=== PATIENT | female | born 1950 | race Caucasian/White ===

== ENCOUNTER 2019-03-03 05:50 | Inpatient (IN) | payer MEDICARE, SELFPAY ==
[2019-02-23 13:00] VITALS: BMI 31.6
[2019-03-03] VITALS (17 sets, daily range): BP systolic 101–159; BP diastolic 52–100; PULSE 66–106; RESP 10–20; TEMP 35.5–36.9; O2SAT 90–100; BMI 31.6
--- NOTE | 2019-03-03 | DI.RAD.S_ITS ---
PROCEDURE: XR LUMBAR SPINE 2-3V INDICATIONS: L5-S1 TLIF TECHNIQUE: 2 views of the lumbar spine were acquired. COMPARISON: None. FINDINGS: Bones: Postsurgical changes compatible with L5-S1 TLIF. Orthopedic hardware is intact. There is normal bony alignment. No vertebral body compression fractures. No suspicious bony lesions. Soft tissues: Overlying bowel gas pattern is normal. No suspicious soft tissue calcifications. IMPRESSION: Expected postsurgical change for L5-S1 TLIF or Dictated by: Dina Moreau MD, PhD on 03/03/2019 at 11:07 Approved by: Dina Moreau MD, PhD on 03/03/2019 at 11:08
[2019-03-03] MEDS: LACTATED RINGERS 1,000 ML 42 ML IV ×2 (07:00→08:30)
--- NOTE | 2019-03-03 07:12 | PM.PREOP ---
Pre-operative Note Interval Note History & Physical reviewed/Exam performed by Physician: Yes Changes to H&P: No
--- NOTE | 2019-03-03 07:13 | P.OP_ITS ---
Operative Date/Time/Diagnoses Date of procedure: 03/03/19 Time of procedure: 10:21 Pre-op diagnosis: Lumbar stenosis with radiculopathy History of lumbar laminectomy Post-op diagnosis: same Procedure & Clinicians Procedure: Revision laminectomy on the right at L5-S1 L5-S1 TLIF (posterior/posterior interbody fusion) with cage L5-S1 screws Iliac crest bone graft aspirate Use of microscope Same procedure as scheduled: Yes Indications: [age] year old female with intractable pain from stenosis. They had failed conservative management and requested operative intervention. Risks and benefits of surgery were discussed and appropriate consents were obtained. Surgeon: Dong Mcgregor Company Pilot: Daren Parham Anesthesia Type: General Operative Notes Findings: None Closure Type: primary Specimen(s): none sent Prosthetic devices, grafts, tissues, transplants, or devices: NuVasive MAS Reline screws Globus Rise cage Estimated Blood Loss (mL): 20 Procedure in detail: The patient was brought to the operating room and intubated on the table. A time-out was performed. They were then rolled over to the well- padded Champ table in the prone position. Preoperative antibiotics were given. The back was prepped and draped in the standard sterile fashion. Using fluoroscopy, a 4 cm longitudinal incision was made to the well-marked right of the midline. We used Bovie to come down to and split the lumbodorsal fascia. Using fluoroscopy and monitoring, we then percutaneously placed Jamshidi needles down the pedicles of L5 and S1 on the right side. These were changed out to guidewires and then we tapped and then placed the NuVasive MAS Reline screw shanks. We then opened up the retractors and used Bovie to clear up the posterolateral gutter as well as medially along the lamina to the spinous processes. We had to carefully dissect the soft tissue medially once we had the junction of the facet and the previous laminectomy. Great care was taken to stay free of the dura. A bur was used to decorticate the transverse processes. We brought in the microscope. Using a combination of bur and Kerrison rongeurs, a revision laminotomy was performed from the right side. We used a curette to dissect the soft tissue and dura away from the remaining facet. Once this was free we performed a facetectomy at this level to open up the neural foramen. We gradually worked our way along the dura down to the level of the disc. We traced the exiting L5 nerve root out. This completed the revision laminotomy at L5-S1. This was separate and distinct from the TLIF approach as this was a revision procedure with large amount of scar tissue from her previous surgery, requiring extensive dissection, time, and meticulous care around the scar and nerves. We then began the TLIF prep. We carefully cleaned up the remainder of the foramen until we could easily retract the exiting root as well as clearing medially below the dura and expose the disc space. We gradually began freeing the scarred dura off of the disc and sweeping it medially. The disc was prepped with bipolar and then an annulotomy was performed. We performed a diskectomy using a combination of paddles, ulices, pituitaries, and curettes. We d istracted the disc using a paddle and locked the retractor in an open position. We then filled the disc space with Osteocel bone graft. We then placed the globus Rise cage under fluoroscopy and then filled this in with more bone graft. The distraction on the retractor was released to compress down. This completed the posterior interbody fusion portion of the TLIF at L5-S1. We then placed the screw heads, elzbieta, and locked down the set screws. The wound was copiously irrigated. A small stab incision was made over the PSIS. We used a Jamshidi needle to aspirate several mL of bone marrow from the pelvis. This was mixed with the remaining Osteocel and combined with all of the locally harvested bone graft and placed in the posterolateral gutter for the posterior fusion of the TLIF at L5-S1. We then closed the fascia. We then went to the opposite side. Again using fluoroscopy, a 3 cm incision was made and Bovie was used to come down to split the fascia. Using neural monitoring and fluoroscopy, Jamshidi needles were advanced down the pedicles of L5 and S1 on the left side. These were switched over guidewires, tapped, and screws placed. We then placed a elzbieta and locked the set screws on this side. The wound was irrigated. The fascia was closed. Vancomycin powder was placed in the wounds. The superficial and skin were closed. A sterile dressing was placed. The patient was then rolled over extubated and brought to recovery room without complications. Complications: none Post-operative Condition: stable Disposition: PACU Plan for aftercare: Inpatient. Up with therapy.
[2019-03-03] MEDS: CEFAZOLIN 2 GM/100 ML FROZ.PIGGY IV ×2 (07:42→17:22)
--- NOTE | 2019-03-03 08:21 | SUR.OPER ---
Prone on spine table, head in foam head support, padded chest and pelvic supports, gel pad at knees, lower legs supported by pillows; nipples, genitalia and toes free of pressure, arms secured on foam padded arm boards at <90 degrees abduction. Tape over blanket at thigh secured to table.
[2019-03-03] MEDS: THROMBIN (RECOMBINANT) 5,000 UNIT VIAL 5000 UNIT TOP (08:31)
[2019-03-03] MEDS: VANCOMYCIN 1,000 MG VIAL 1000 MG TOP (08:31)
[2019-03-03] MEDS: SODIUM CHLORIDE 0.9% 1,000 ML, GENTAMICIN 80 MG IRR ×2 (08:33→08:34)
[2019-03-03] MEDS: BUPIVACAINE 0.5% (PF) 20 ML, BUPIVACAINE LIPOSOME 266 MG INJ (09:46)
[2019-03-03] MEDS: HYDROMORPHONE 2 MG INJ IV ×2 (10:52→10:59)
[2019-03-03] MEDS: fentaNYL 100 MCG/2 ML INJ IV ×2 (10:52→10:59)
[2019-03-03] MEDS: HYDROMORPHONE 1 MG INJ 0.5 MG IV ×2 (12:28→14:23)
[2019-03-03] MEDS: LACTATED RINGERS 1,000 ML 125 ML IV (12:29)
--- NOTE | 2019-03-03 13:01 | CM.DANOTE ---
Discharge Planning/Care Management DCP: assessment: case received this morning and discussed in Team Rounds. It was noted that pt was still in surgery. EMR reviewed. Pt is a 68 year old male who admitted this morning 0550 for a planned spinal surgery: revision: lumbar region. Surgeon: Dr. Mcgregor PCP: Kailey Najera Pt also sees a tinning equipment tender and a creative consultant. Payer: [employer] Medicare Admission status: INPT: confirmed by UR RN Carmelo. OT and PT will be seeing pt after surgery. It is noted that pt spoke with pre-op RN ANTON on 02/23 and identified her post d/c plan as home with family support. P: Pt has not yet come to the post surgical floor. Will follow up tomorrow to meet with pt and continue the assessment for d/c needs process CM Discharge Assessment Start: 03/03/19 13:00 Freq: Status: Active Protocol: Document 03/03/19 13:00 ITV (Rec: 03/03/19 13:01 ITV [id number]) Discharge Planning Assessment Advance Directives? No Advance Directives on File No History Provided By Medical Record Has Patient been admitted in last 30 No days? Prior Living Arrangements House Household Members spouse,children Review Status In Process Pre-Anesthesia Assessment Start: 02/23/19 13:00 Freq: Status: Complete Protocol: Document 02/23/19 13:00 CAB (Rec: 02/23/19 13:54 CAB [id number]) Pre-Anesthesia Assessment PAC Comment Surgeon H&P not available at time of PAC assess Preferred Name Candace Patient Information Reviewed Via Phone Assessment Assessment Completed With Patient Diagnostic Results BMP/CMP,CBC,EKG Comment Outside labs/EKG scanned to record Primary Care Provider Kailey Najera Medical Clearance Received Yes Seen Specialist in Last 12 Months Yes Specialist Seen Orthopedist,Other Comment RA-Dr. Julian. PCP pre-op clearance 02/13/19 scanned to record Primary Language Central African Height 146.69 cm Weight 68.039 kg Body Mass Index (BMI) 31.6 Hearing Ability Normal Visual Assist Glasses Dentition Type Teeth, Natural Present,Teeth, Broken Barriers to Learning None Other Aids No Hx Anesthesia Reactions Yes: PONV Hx Family Anesthesia Reaction No Hx Malignant Hyperthermia No Hx Blood Transfusions No Anesthesia Review Requested No alcohol intake former Smoking Status Never smoker Substance Use Type does not use Pain Present Pain Reported Musculoskeletal Symptoms Abnormal Gait,Back Pain, Difficulty Walking,Limited Range of Motion,Loss of Height ,Numbness,Radiating Pain into Limb History of Falling (Recent or History of Yes ) Patient is completely paralyzed or No completely immobile Mental Status Oriented to own ability Is patient on oxygen? No Does patient have CLAYTON/SOB No Hx Sleep Apnea No Currently Taking a Beta Dylon No Can You Climb a Flight of Stairs Without Yes SOB Hx Chest Pain Yes: Not since 2018 Hx SOB No Hx Syncope or Dizziness No Anti-Coagulant Therapy No Has a Arc Furnace Operator Yes: Dr. Cochran-last saw Cardiac Testing Yes: Echo @ [facility] EF 60% Hx Pacemaker/ICD No Pacemaker Rep Required? No Cardiac Clearance Received Not Applicable Comment Cardiac records scanned to record Diet Type At Home Ketogenic dysphagia No: Sensation of solid food getting stuck, intermittent Bladder Pattern Incontinent,Incontinent, Stress Urinary Catheter Present No Hx Urinary Self Catheterization No Diabetes No Patient No Lactating No Hx Drug Resistant Organism No Presence of External or Internal Medical No Devices Have you traveled outside the [facility] in the last 30 days? Marital Status Lives With spouse,children Prior Living Arrangements House Number of Floors (Floors) One Floor Support System Child/Children,Spouse Does the Patient Have Assistance After Yes Surgery Patient Discharge Plan Description Return Home Comment Pt advised 2-3 day length of stay per surgeon Feels Safe in Current Environment Yes Been Physically Hurt or Threatened By a No Person in Current Environment Do you have thoughts of harming yourself None or others? Are you currently considering suicide? No Do you have a plan to hurt yourself or No Plan others? Do You Have Any Spiritual Beliefs That Yes: Wears yazdanism garments May Affect Your HC Choices? daily Do You Have Any Cultural Practices That No May Affect Your HC Choices? Comment Linda Who Can We Speak to About Patient's Care Family, friends Identifying Code for Release of Patient Declines to issue Information Health Care Proxy/Next of Kin Juvencio () Health Care Proxy Emergency Contact Name Juvencio () Esther ( daughter) Emergency Contact Phone Number Juvencio: [phone] Esther : [phone] Advance Directives? No Power of Laundry Bag Punch Operator No PAC Instructions Durable medical equipment, Medications to take/avoid, Nasal antibiotic,No ETOH/ petroleum product on skin DOS, NPO,Post-op transportation,Pre -surgical wash,Sturdy shoes/ comfortable clothes,Do not bring valuables and remove jewelry
--- NOTE | 2019-03-03 13:21 | PC.NURSE ---
Day Shift- Report rec'd from LEENA Hutchinson in PACU at 1116. Pt arrived at 1140 to room 217 via bed. Pt's Devon at beside. Dennis RN Coordinator tucked in pt. VSS, afebrile. At 1210, pt alert, c/o 8-9/10 aching to lower back. Pain management plan discussed. PRN Dilaudid 0.5mg IV prn given at 1225 with good effect. Lower back dressing CDI, ice pack in place, CMS+, pt denies numbness or tingling, able to move BLE. Helps shift hips getting into a comfortable position. Using MING bed tilt to reposition also from side to side. Oriented to call light, post op vitals, dinner, starting slowly on fluids and foods. Pt denies nausea. Call light within reach, bed alarm on, pt reports falling down garage stairs within the last 3 months. Devon took pt's wallet home.
[2019-03-03] MEDS: GABAPENTIN 300 MG CAPSULE PO ×2 (14:31→21:07)
--- NOTE | 2019-03-03 16:40 | PT.IIE ---
This is to certify that I have reviewed this documentation and is involved with this pt's care. Current Diagnoses Spinal stenosis, lumbar region with neurogenic claudication (03/03/19) Other intervertebral disc degeneration, lumbar region (03/03/19) Other specified postprocedural states (03/03/19) Surgery Performed Operation Date: 03/03/19 07:45 Actual Procedures p L5S1 revision laminectomy and instrumented fusion w/ bone graft(Not Applicable) - Dong Mcgregor MD Surgical History (Last Updated 02/23/19 @ 13:32 by Maria Antonia Hernandez RN) History of bilateral tubal ligation (Acute) Hx of laminectomy (Acute ~06/1996) Hx of left breast biopsy (Acute ~1982) Medical History (Last Updated 02/24/19 @ 08:20 by Maria Antonia Hernandez RN) Arthritis (Acute) CAD (coronary artery disease) (Acute) Chest pain (Acute ~2017) Chronic back pain (Acute) Concussion (Acute ~2011) Easy bruisability (Acute) Edema (Acute) Elevated glucose (Acute) Fibromyalgia (Acute) GERD (gastroesophageal reflux disease) (Acute) Mastitis (Acute ~1982) Numbness (Acute) Pleurisy (Acute ~07/2017) Psoriasis (Acute) Psoriatic arthritis (Acute) Sciatica (Acute) Thinning of skin (Acute) Physical Therapy Inpatient Evaluation/Re-Eval M1 PT/OT-IP Prior Functional Status Start: 03/03/19 18:10 Freq: NEEDED Status: Active Protocol: Document 03/03/19 16:40 J (Rec: 03/03/19 18:37 J [id number]) Medical Review Prior Functional Status Medical History Reviewed Yes Communication Pt able to make needs known. Mobility and Gait Pt reports I with mobility and gait prior to surgery but limited tolerance d/t pain. Activities of Daily Living and IADL's Pt reports I with ADLs/IADLs prior to surgery. Prior Functional Level (Other details) Pt was able to drive prior to surgery. Social History Household Members spouse,children Living Arrangements House Number of Floors (Floors) One Floor Number of Stairs To Enter/Railing? 3 KIM (no railing) Home Environment High Toilet,Walk in Shower,Tub /Shower Doors Home Equipment Shower Seat with Backrest,Hand Held Shower Employment Status Retired Additional Social History Comment Pt lives in one-story home in [place] [facility] with , adult daughter, and two grandchildren. Pt notes that she is the primary caregiver for her grandchildren when her daughter is at work. She states that her is retired and will be able to help her with mobility upon d/ c home. Pt has 3 KIM house without a railing. M2 PT-IP Current Condition Start: 03/03/19 18:10 Freq: NEEDED Status: Active Protocol: Document 03/03/19 16:40 JG (Rec: 03/03/19 18:37 JG [id number]) Physical Therapy Current Condition Current Condition Evaluation Date 03/03/19 Treatment Diagnosis L5-S1 TLIF, impaired mobility, limited activity tolerance Onset Date 03/03/19 Precautions Lumbar Precautions Log Roll,No Twisting,Limit Bending,Lifting Restriction of 10 lbs,Gait Belt above Incisional Area Weight Bearing Status Weight Bearing Status Full Weight Bearing M3 PT-IP Subjective Start: 03/03/19 18:10 Freq: NEEDED Status: Active Protocol: Document 03/03/19 16:40 JG (Rec: 03/03/19 18:37 JG [id number]) Subjective Physical Therapy Visit Type Type Initial Evaluation Visit Start Time 16:40 Visit Stop Time 17:21 Total Visit Minutes 41 Notes IE led by OLGA Guillen, supervised by PT Desirae Number of POWER PLANT OPERATOR APPRENTICE Visits 0 Physical Therapy Visit Comments Patient Comments pt agreeable to do PT Patient Goals Return home Therapy Pain Assessment Pain When Pain Assessed At Rest Pain Present Pain Present Pain Reported Location Lower Back Intensity 6 Scale Used Numeric (1 - 10) Description Acute,Sharp,With Movement Pain Behaviors Wincing Pain Management Techniques Distraction,Re-positioning M4 PT-IP Mobility and Gait Start: 03/03/19 18:10 Freq: NEEDED Status: Active Protocol: Document 03/03/19 16:40 JG (Rec: 03/03/19 18:37 JG [id number]) PT-Bed Mobility Assessment Rolling Type of Rolling Roll to Right Level of Assist Minimal Assistance,1 Person Assistance Supine to Sit Supine to Sit Minimal Assistance,1 Person Assistance Sit to Supine Sit to Supine Standby Assistance Scooting Scooting to Edge of Bed Contact Guard Assistance PT-Transfer Assessment Sit to and From Stand Sit to and from Stand Minimal Assistance,1 Person Assistance,Use of Upper Extremities Equipment Transfer Assistive Device Gait Belt,Front Wheeled Walker Orthotic/Prosthetic Devices or Brace: No Transfers Transfer Destination Bed Transfer Technique stepped laterally with FWW Transfer Ability Level of Assist Minimal Assistance,1 Person Assistance,Use of Upper Extremities Comments Mobility Comments Pt in bed upon assessment. Resting BP 134/82. Pt able to correctly articulate precautions. Educated pt on log rolling for bed mobility. Pt able to complete log roll and supine to sit with min A and cuing. Pt CGA to scoot to EOB but pt cont to be unable to reach floor so a pillow support was provided under feet. Pt reported increase in dizziness/nausea once sitting up with BP stable at 145/84, sx slightly improved after sitting for several minutes EOB but cont to complain of nausea and requested to lay back down in bed. Pt sitting too close to foot of bed at time so instructed pt to move closer to HOB prior to lying down to improve positioning. Pt agreed to stand up to reposition. Pt able to stand with min A and take several small steps laterally with min A and FWW to reposition in bed. Pt demonstrated limited foot clearance and forward trunk lean during lateral stepping. Min A for stand to sit to control descent. Pt required SBA for sit to supine with cuing for log rolling. Pt able to reposition in bed SB. Elevated HOB so pt could have dinner. Pt cont to report nausea but BP stable at 144/ 90, alerted nurse to nausea. Pt left in bed with HOB elevated, call light and needs within reach. Gait Assessment Gait Deviations General Gait Pattern Antalgic,Decreased Feet Clearance,Flexed Trunk Factors Limiting Gait Function Factors Limiting Gait Function Decreased Activity Tolerance, Decreased Strength,Pain,Poor Balance Comments Gait Comments see mobility comments Stair Climbing Assessment Comments Stair Climbing Comments not assessed PT-Balance Assessment Sitting Balance and Reactions Static Sitting Balance Ability Good Dynamic Sitting Balance Ability Fair Standing Balance and Reactions Static Standing Balance Ability Fair Dynamic Standing Balance Ability Fair Device Used FWW M5 PT-IP Objective Assessments Start: 03/03/19 18:10 Freq: NEEDED Status: Active Protocol: Document 03/03/19 16:40 JG (Rec: 03/03/19 18:37 JG [id number]) Orientation Orientation/Cognition Level of Alertness Alert Orientation Name,Day of Week,Place, Situation Language Function Ability No Deficits Noted Safety Awareness Understands Safety Issues Memory Description No Deficits Noted Comments No noted cognitive or communication deficits. Gross Range of Motion Upper Extremity ROM Assessment Within Functional Limits Lower Extremity ROM Assessment Within Functional Limits Strength Upper Extremity Strength Assessment Within Functional Limits Lower Extremity Strength Assessment Bilaterally Impaired Hip 4-/5 Knee 4-/5 Ankle 4-/5 Sensation Assessment Sensation Gross Sensation Right LE Impaired,Left LE Impaired Light Touch Impaired Comments Sensation Comments Pt notes she has had decreased sensation on the bottom of both feet since previous back surgery. Muscle Tone Muscle Tone WNL Yes M6 PT-IP Treatment Start: 03/03/19 18:10 Freq: NEEDED Status: Active Protocol: Document 03/03/19 16:40 JG (Rec: 03/03/19 18:37 JG [id number]) Physical Therapy Treatment Education Education Provided Precautions,Post-Op Packet, Safety Other Treatments Other Treatment Performed Educated pt on benefit of acquiring FWW for safe mobility at home, pt agreeable and noted her would acquire one prior to d/c. Provided pt with DME list. M7 PT-IP Assessment and Plan Start: 03/03/19 18:10 Freq: NEEDED Status: Active Protocol: Document 03/03/19 16:40 JG (Rec: 03/03/19 18:37 JG [id number]) PT Summary Assessment and Plan Potential Rehabilitation Potential Good Status of Condition at Evaluation Stable Summary Impairments Pain,ROM,Strength,Balance, Sensation,Bed Mobility, Transfers,Gait,Activity Tolerance Assessment Summary Pt is 68 yo female same day s/ p TLIF. Pt required no more than min A for mobility but has limited tolerance for mobility d/t nausea. Pt moves slowly throughout session d/t pain. Pt's independence likely to improve as her pain and nausea are controlled. PT currently recommends d/c to home with assist once caregiver training complete and pt medically cleared. Goals Bed Mobility Goal Standby Assistance Transfer Goal Standby Assistance,Front Wheeled Walker Gait Goal Standby Assistance,Front Wheel Walker Gait Distance 100 Other Goals Ascend/descend 3 stairs CGA with SPC and/or HARDBOARD PRESS OPERATOR. Days to Meet Goals 5 Frequency of Treatment Frequency Of Treatment Twice a Day Treatment Plan Physical Therapy Treatment Plan Bed Mobility Training,Transfer Training,Gait Training, Therapeutic Exercise,Balance Retraining,Post Op Education, Discharge Planning,Hot or Cold Pack,Neuromuscular Re-ed Other Recommendations and Next Treatment gait training and stair Focus training as penelope caregiver training Recommendations To Nursing Amount of Assist Needed 2 Person Assist Discharge Recommendations PT Discharge Recommendations Home with Assistance,Home with 24/7 Assist,Outpatient PT
[2019-03-03] MEDS: SENNOSIDES 8.6 MG TABLET 17.2 MG PO (21:06)
[2019-03-03] MEDS: DOCUSATE 100 MG CAPSULE PO (21:07)
[2019-03-03] MEDS: ATORVASTATIN 10 MG TABLET PO (21:07)
[2019-03-03] MEDS: BACLOFEN 10 MG TABLET PO (21:07)
[2019-03-03] MEDS: hydrOXYzine pamoate 25 MG CAPSULE PO (21:07)
[2019-03-03] MEDS: HYDROMORPHONE 0.5 MG INJ IV (21:08)
[2019-03-04] MEDS: CEFAZOLIN 2 GM/100 ML FROZ.PIGGY IV (00:13)
[2019-03-04] MEDS: HYDROMORPHONE 0.5 MG INJ IV ×4 (00:28→20:51)
[2019-03-04] MEDS: ACETAMINOPHEN 325 MG TABLET 650 MG PO (00:29)
[2019-03-04 04:52] VITALS: BP 108/58; PULSE 96; RESP 16; TEMP 36.6; O2SAT 88
[2019-03-04] MEDS: SODIUM CHLORIDE 0.9% FLUSH 10 ML IV ×3 (05:04→21:57)
[2019-03-04 06:05] LABS: Hematocrit 31.1 % (36-46); Hemoglobin 10.6 g/dL (12.0-16.0)
[2019-03-04 06:27] VITALS: O2SAT 90
--- NOTE | 2019-03-04 06:45 | PC.NURSE ---
Pt POD 1 s/p lami revision. CMS intact. Pt reports pain tolerable with pain medication per order. DSG to mid back saturated overnight and small ooze exceeding borders of gauze tegaderm dressing. Dressing change done using clean technique, incision x2 without redness, sutures intact. IVF saline locked this morning per order. Pt tolerating sips of water, no nausea. Reviewed activity precautions, pt able to teach back. Reynolds patent. Rare, non-productive cough.
--- NOTE | 2019-03-04 07:22 | PM.PNPO.1 ---
Subjective Subjective Date Patient Seen: 03/04/19 Time Patient Seen: 07:22 Interval history: She is doing well. Legs feel fine. She stood up yesterday with physical therapy was nauseated and then just sat in the chair but no ambulation. No nausea overnight. She describes the pain as an ache, 7/10. Her dressing was saturated yesterday and they had to change it immediately postop but not since then. Exam Vital Signs (past 8 hours): - 03/03/19 23:30 03/04/19 04:52 03/04/19 06:27 Temperature 98.4 F 97.8 F Pulse Rate 106 H 96 H Respiratory Rate 16 16 Blood Pressure 101/54 L 108/58 L Pulse Oximetry 96 88 L 90 L Oxygen Delivery Method Room Air Oxygen Flow Rate 0 Const Orientation: alert and oriented x3 Back/Spine/Pelvis Other: Moderate quarter-size drainage on dressing. 5/5 motor both lower extremities Objective Labs Result Diagrams: 03/04/19 05:55 Labs: Laboratory Results - last 24 hr 03/04/19 05:55 Hgb 10.6 L Hct 31.1 L Assessment & Plan Post-op Postoperative Procedures: Procedures Operation Date: 03/03/19 07:45 Actual Procedures Side Surgeon p L5S1 revision laminectomy and instrumented fusion w/ bone graft Not Applicable Dong Mcgregor MD She is doing well. Mobilize with physical therapy. Anticipate 1 more day. Quality VTE Deep Vein Thrombosis/Pulmonary Embolism Present on Admission: No
[2019-03-04 08:00] VITALS: BP 104/61; PULSE 83; RESP 16; TEMP 37.1; O2SAT 92
[2019-03-04] MEDS: HYDROCODONE/ACET 5/325 TABLET 2 TAB PO ×3 (09:06→18:50)
[2019-03-04] MEDS: PANTOPRAZOLE 20 MG TABLET PO (09:14)
[2019-03-04] MEDS: ASPIRIN EC 81 MG TABLET PO (09:14)
[2019-03-04] MEDS: DOCUSATE 100 MG CAPSULE PO ×2 (09:14→20:50)
[2019-03-04] MEDS: FOLIC ACID 1 MG TABLET PO (09:15)
[2019-03-04] MEDS: GABAPENTIN 300 MG CAPSULE PO ×3 (09:15→20:50)
[2019-03-04] MEDS: BACLOFEN 10 MG TABLET PO ×3 (09:15→20:51)
--- NOTE | 2019-03-04 09:59 | PT.IPTN ---
Current Diagnoses Spinal stenosis, lumbar region with neurogenic claudication (03/03/19) Other intervertebral disc degeneration, lumbar region (03/03/19) Other specified postprocedural states (03/03/19) Surgery Performed Operation Date: 03/03/19 07:45 Actual Procedures p L5S1 revision laminectomy and instrumented fusion w/ bone graft(Not Applicable) - Dong Mcgregor MD Physical Therapy Treatment Note M2 PT-IP Current Condition Start: 03/03/19 18:10 Freq: NEEDED Status: Active Protocol: Document 03/03/19 16:40 JG (Rec: 03/03/19 18:37 JG [id number]) Physical Therapy Current Condition Current Condition Evaluation Date 03/03/19 Treatment Diagnosis L5-S1 TLIF, impaired mobility, limited activity tolerance Onset Date 03/03/19 Precautions Lumbar Precautions Log Roll,No Twisting,Limit Bending,Lifting Restriction of 10 lbs,Gait Belt above Incisional Area Weight Bearing Status Weight Bearing Status Full Weight Bearing M3 PT-IP Subjective Start: 03/03/19 18:10 Freq: NEEDED Status: Active Protocol: Document 03/04/19 09:59 AB (Rec: 03/04/19 13:15 AB [id number]) Subjective Physical Therapy Visit Type Type Treatment Note Visit Start Time 09:59 Visit Stop Time 10:28 Total Visit Minutes 29 Number of GRIP Visits 0 Physical Therapy Visit Comments Patient Comments pt agreeable to do PT Therapy Pain Assessment Pain When Pain Assessed At Rest Pain Present Pain Present Pain Reported Location Lower Back Intensity 6 Scale Used Numeric (1 - 10) Pain Management Techniques Apply Cold,Re-positioning, Timing of Activity with Medications M4 PT-IP Mobility and Gait Start: 03/03/19 18:10 Freq: NEEDED Status: Active Protocol: Document 03/04/19 09:59 AB (Rec: 03/04/19 13:15 AB [id number]) PT-Bed Mobility Assessment Rolling Type of Rolling Log Rolling Level of Assist Standby Assistance Supine to Sit Supine to Sit Contact Guard Assistance Scooting Scooting to Edge of Bed Standby Assistance PT-Transfer Assessment Sit to and From Stand Sit to and from Stand Contact Guard Assistance Equipment Transfer Assistive Device Gait Belt,Front Wheeled Walker Orthotic/Prosthetic Devices or Brace: No Transfers Transfer Destination Chair Transfer Technique Stand Step Pivot Transfer Ability Level of Assist Contact Guard Assistance,1 Person Assistance Comments Mobility Comments BP: 100/55 completed supine to is log roll CGA with cues. able to sit on EOB SBA. c/o lightheadedness BP: 113/67. completed sit to stand CGA and transferred to chair using FWW CGA. c/o lightheadedness. BP: 108/75 agreed to ambulate and completed ~ 6 ft using FWW CGA but unable to go farther and pt wanted to sit down due to lightheadedness. BP: 103/65 positioned pt on chair. call light and table placed within reach. Gait Assessment Gait Gait Assistance Required: Contact Guard Assist Distance (Feet) 6 Able to Maintain Weight Bearing Status Yes During Gait Assistive Devices Assistive Device Gait Belt,Front Wheeled Walker Gait Deviations General Gait Pattern Decreased Stride Length, Decreased Feet Clearance Factors Limiting Gait Function Factors Limiting Gait Function Decreased Activity Tolerance, Decreased Strength,Pain,Poor Balance M5 PT-IP Objective Assessments Start: 03/03/19 18:10 Freq: NEEDED Status: Active Protocol: Document 03/03/19 16:40 JG (Rec: 03/03/19 18:37 JG [id number]) Orientation Orientation/Cognition Level of Alertness Alert Orientation Name,Day of Week,Place, Situation Language Function Ability No Deficits Noted Safety Awareness Understands Safety Issues Memory Description No Deficits Noted Comments No noted cognitive or communication deficits. Gross Range of Motion Upper Extremity ROM Assessment Within Functional Limits Lower Extremity ROM Assessment Within Functional Limits Strength Upper Extremity Strength Assessment Within Functional Limits Lower Extremity Strength Assessment Bilaterally Impaired Hip 4-/5 Knee 4-/5 Ankle 4-/5 Sensation Assessment Sensation Gross Sensation Right LE Impaired,Left LE Impaired Light Touch Impaired Comments Sensation Comments Pt notes she has had decreased sensation on the bottom of both feet since previous back surgery. Muscle Tone Muscle Tone WNL Yes M6 PT-IP Treatment Start: 03/03/19 18:10 Freq: NEEDED Status: Active Protocol: Document 03/04/19 09:59 AB (Rec: 03/04/19 13:15 AB [id number]) Physical Therapy Treatment Education Education Provided Precautions,Safety M7 PT-IP Assessment and Plan Start: 03/03/19 18:10 Freq: NEEDED Status: Active Protocol: Document 03/04/19 09:59 AB (Rec: 03/04/19 13:15 AB [id number]) PT Summary Assessment and Plan Potential Rehabilitation Potential Good Summary Impairments Pain,ROM,Strength,Balance, Coordination,Bed Mobility, Transfers,Gait,Activity Tolerance Progress Towards Goals Slow Progress due to Activity Tolerance Assessment Summary pt requires CGA with mobility but unable to tolerate much due to c/o lightheadedness. pt plans to go home and spouse to assist her. will continue to assess progress. will also conduct caregiver training when appropriate and also complete stair climbing prior to d/c. Goals Bed Mobility Goal Standby Assistance Transfer Goal Standby Assistance,Front Wheeled Walker Gait Goal Standby Assistance,Front Wheel Walker Gait Distance 100 Other Goals Ascend/descend 3 stairs CGA with SPC and/or TRAUMA COORDINATOR. Days to Meet Goals 5 Frequency of Treatment Frequency Of Treatment Twice a Day Treatment Plan Physical Therapy Treatment Plan Bed Mobility Training,Transfer Training,Gait Training, Therapeutic Exercise,Balance Retraining,Post Op Education, Discharge Planning,Hot or Cold Pack,Neuromuscular Re-ed Other Recommendations and Next Treatment gait training and stair Focus training as penelope caregiver training Recommendations To Nursing Amount of Assist Needed 1 Person Assist Discharge Recommendations PT Discharge Recommendations Home with Assistance
--- NOTE | 2019-03-04 10:17 | PC.NURSE ---
Addendum entered by Taylor Dean R.N. 03/04/19 14:56: urinary catheter removed at 1445 without difficulty with post removal expectations verbally given to pt. Pt moved from room 217 to room 212 per RN Coordinator request. Pt agreeable, pt moved with all personal belongings. Original Note: Day Shift- Pt A&OX4, able to make needs known using call light. Rates 8/10 deep aching to lower back and radiating down left leg. IV PRN Dilaudid given at 0905 with Lignum 2 tab PRN, plan for po murphy meds as pt has not had yet post op. Upon reassessment pain decreased to 6/10. No nausea this Am. Lower back dressing of gauze and tegaderm intact with 75% bloody drainage to left side, outlined with pen upon assessment. CMS+, pt has chronic numbness to bottom of feet prior to surgery. Pt assisted in repositioning in bed, prefers side to side. maintains lumbar post op precautions with verbal cues. Plan to D/C urinary catheter after AM PT session. At this time, pt wants to stay another night for PT and pain management. At 1010, while working with PT, Lower back dressing saturated and leaking. Dressing removed, cleansed with NS, 2 incisions well approximated with sutures intact, no active drainage with cleaning, pat dry and 4X4 gauze placed over incisions and covered with tegaderm. pt tolerated well. Pt mobilized to recliner chair at bedside with PT, slightly dizzy, BP and pulse stable.
[2019-03-04 12:00] VITALS: BP 113/69; PULSE 85; RESP 16; TEMP 37; O2SAT 94
[2019-03-04] MEDS: hydrOXYzine pamoate 25 MG CAPSULE PO ×2 (12:16→20:50)
--- NOTE | 2019-03-04 13:04 | OT.IP.EVAL ---
Current Diagnoses Spinal stenosis, lumbar region with neurogenic claudication (03/03/19) Other intervertebral disc degeneration, lumbar region (03/03/19) Other specified postprocedural states (03/03/19) Surgery Performed Operation Date: 03/03/19 07:45 Actual Procedures p L5S1 revision laminectomy and instrumented fusion w/ bone graft(Not Applicable) - Dong Mcgregor MD Past Medical History (Last Updated 02/24/19 @ 08:20 by Maria Antonia Hernandez RN) Arthritis (Acute) CAD (coronary artery disease) (Acute) Chest pain (Acute ~2017) Chronic back pain (Acute) Concussion (Acute ~2011) Easy bruisability (Acute) Edema (Acute) Elevated glucose (Acute) Fibromyalgia (Acute) GERD (gastroesophageal reflux disease) (Acute) Mastitis (Acute ~1982) Numbness (Acute) Pleurisy (Acute ~07/2017) Psoriasis (Acute) Psoriatic arthritis (Acute) Sciatica (Acute) Thinning of skin (Acute) Surgical History (Last Updated 02/23/19 @ 13:32 by Maria Antonia Hernandez RN) History of bilateral tubal ligation (Acute) Hx of laminectomy (Acute ~06/1996) Hx of left breast biopsy (Acute ~1982) Occupational Therapy Inpatient Evaluation/Re-Eval M1 PT/OT-IP Prior Functional Status Start: 03/03/19 18:10 Freq: NEEDED Status: Active Protocol: Document 03/04/19 13:06 CGR (Rec: 03/04/19 13:36 CGR [id number]) Medical Review Prior Functional Status Medical History Reviewed Yes Communication Pt able to make needs known. Mobility and Gait Pt reports I with mobility and gait prior to surgery but limited tolerance d/t pain. Activities of Daily Living and IADL's Pt reports I with ADLs/IADLs prior to surgery. Prior Functional Level (Other details) Pt was able to drive prior to surgery. Social History Household Members spouse,children Living Arrangements House Number of Floors (Floors) One Floor Number of Stairs To Enter/Railing? 3 KIM (no railing) Home Environment High Toilet,Walk in Shower, Built-In Shower Seat Home Equipment Raised Toilet Seat Without Armrests,Hand Held Shower Employment Status Retired Additional Social History Comment Pt lives in one-story home in [place] with , adult daughter, and two grandchildren. Pt notes that she is the primary caregiver for her grandchildren when her daughter is at work. She states that her is retired and will be able to help her with mobility upon d/ c home. Pt has 3 KIM house without a railing. Grandkids are 3 and 5 years old. The 5 year old has been diagnosed with autism and often requires holding to calm down. M2 OT-IP Current Condition Start: 03/04/19 13:06 Freq: Status: Active Protocol: Document 03/04/19 13:06 CGR (Rec: 03/04/19 13:36 CGR [id number]) Occupational Therapy Current Condition Current Condition Evaluation Date 03/04/19 Treatment Diagnosis L5-S1 revision of yoandy, and fusion with bone graft. Diagnosis Onset Date 03/03/19 Post Operative Precautions Lumbar Precautions Log Roll,No Twisting,Limit Bending,Lifting Restriction of 10 lbs,Gait Belt above Incisional Area M3 OT- IP Subjective and Pain Start: 03/04/19 13:06 Freq: Status: Active Protocol: Document 03/04/19 13:06 CGR (Rec: 03/04/19 13:36 CGR [id number]) OT- Subjective Occupational Therapy Visit Type Type Initial Evaluation Visit Start Time 11:55 Visit Stop Time 13:04 Total Visit Minutes 69 Occupational Therapy Visit Comments Patient Comments I feel a little dizzy while standing. OT Pain Assessment Pain When Pain Assessed At Rest Pain Present Pain Present Pain Reported Location Lower Back Intensity 4 Scale Used Numeric (1 - 10) Management Techniques Modification of Treatment, Timing of Activity with Medications M4 OT- IP ADL's Start: 03/04/19 13:06 Freq: Status: Active Protocol: Document 03/04/19 13:06 CGR (Rec: 03/04/19 13:36 CGR [id number]) OT [id number]-Ipuzzjj General Evaluation Self-Feeding Ability Independent Comments OT Self-Feeding Comments Pt eating lunch as OT exiting OT ADL-Grooming General Evaluation Grooming Ability Independent Areas Needing Assistance Retrieving/Set-up of Grooming Items Comments OT Grooming Comments standing at sink OT ADL-Oral Care General Eval Oral Care Ability Independent Areas of Assistance Brushing Teeth,Retrieving/Set- Up of Items Comments Oral Care Comments standing at sink, pt needed VC for maintaining back precautions but was able to perform without physical assist. OT ADL-Dressing General Eval Upper Body Dressing Ability Independent Lower Body Dressing Ability Minimal Assistance Areas Needing Assistance Retrieving/Set-up of Clothing, Socks Assistive Devices Dressing Assistive Devices Wildlife Refuge Specialist,Sock Aid Comments OT Dressing Comments Educated pt on use of hip kit for LB dressing socks, shoes and pants/underware. OT ADL-Toileting General Evaluation Toileting Ability Standby Assistance Comments OT Toileting Comments Pt was able to perform toilet transfer with use of walker only as pt does not have anything to support her with transfer in her home bathroom. OT ADL-Bathing Comments OT Bathing Comments Not performed in this session but educated on need for grab bars and shower chair. M5 OT- IP IADL's Start: 03/04/19 13:06 Freq: Status: Active Protocol: Document 03/04/19 13:06 CGR (Rec: 03/04/19 13:36 CGR [id number]) OT-Instrumental Activities of Daily Living Deficits IADL Deficits Identified Deficits Home Safety Awareness Awareness of Need for Assistance at Home Good Awareness Ability to Problem Solve Emergency Able to Problem Solve Situations Medication Management Medication Management No Deficits Identified Money Management Money Management No Deficits Identified Meal Preparation Meal Preparation Caregiver Provides Assist Field Support Rep Field Support Rep Caregiver Provides Assist Driving Driving Comments Pt understands that she should not be driving till cleared by her doctor. M6 OT- IP Functional Cognition Start: 03/04/19 13:06 Freq: Status: Active Protocol: Document 03/04/19 13:06 CGR (Rec: 03/04/19 13:36 CGR [id number]) Cognitive Factors Limiting Selfcare Function Cognitive Ability Level of Alertness Alert Patient Orientation Name,Age,Birthday,Month,Date, Year,Day of Week,Place, Situation Attention Span Ability Capable of Focused Attention, Capable of Sustained Attention Ability to Follow Commands Able to Follow Multi-Step Commands Memory Description No Deficits Noted Safety Awareness No Deficits Noted Problem Solving Ability No deficits Noted Executive Function Ability No Deficits Noted Abstract Thinking Ability No Deficits Noted OT- Vision and Hearing OT- Hearing Assessment OT- Hearing Assessment WFL OT- Vision Assessment Visual Acuity WFL,Glasses All The Time Visual Attentiveness WFL Occular Pursuits WFL Visual Convergence WFL Visual Miller WFL Vision Assessment Comments Bifocals M7 OT- IP Mobility and Balance Start: 03/04/19 13:06 Freq: Status: Active Protocol: Document 03/04/19 13:06 CGR (Rec: 03/04/19 13:36 CGR [id number]) OT-Transfer Assessment Sit to and From Stand Sit to and from Stand Contact Guard Assistance Transfers Transfer Ability Contact Guard Assistance Technique Transfer Destination Chair,Toilet Transfer Technique Stand Step Pivot Devices Transfer Assistive Devices Gait Belt,Front Wheeled Walker Comments Mobility Comments Mobility around the room. OT- Gait Assessment Gait Gait Assistance Required: Contact Guard Assist Assistive Devices Assistive Device Gait Belt,Front Wheeled Walker Comments Gait Ability Comments mobility around the room. OT- Balance Assessment Sitting Balance and Reactions Static Sitting Balance Ability Good Dynamic Sitting Balance Ability Fair M8 OT- IP Objective Assessments Start: 03/04/19 13:06 Freq: Status: Active Protocol: Document 03/04/19 13:06 CGR (Rec: 03/04/19 13:36 CGR [id number]) OT Gross Range of Motion Upper Extremity Range of Motion Assessment Within Functional Limits OT Strength Upper Extremity Strength Assessment Within Functional Limits OT- Coordination Assessment Upper Extremity Finger to Nose Test Within Functional Limits Finger Tapping Test Within Functional Limits OT-Muscle Tone Assessment Muscle Tone WNL Yes OT Sensation Assessment Edema Edema Absent M9 OT- IP Assessment and Plan Start: 03/04/19 13:06 Freq: Status: Active Protocol: Document 03/04/19 13:06 CGR (Rec: 03/04/19 13:36 CGR [id number]) OT Summary Assessment and Plan Potential Rehabilitation Potential Excellent Analytic Complexity at Evaluation Low Summary OT Impairments Pain,Balance,Functional Mobility,Grooming,Dressing, Toileting,Bathing,Toilet Transfers,Shower Transfers Progress Towards Goals Progressing Toward Goals Assessment Summary Pt presents as a low complexity evaluation. Pt is s /p L5-S1 revision of lami and fusion with bonegraft. Pt is mobilizing well and states understanding of safety and back precautions. Recommended shower chair for home use as her built in shower seat is too small and low to be used as well as grab bars in the shower and by the toilet. Pt educated on recommendation for handrail at entry stairs as well. Pt is progressing towards goals but would benefit from review prior to discharge home with family assist. Pt's was present through part of the session. Goals Dressing Goal Independent,Wildlife Refuge Specialist,Sock Aid Toileting Goal Independent Bathing Goal Independent Toilet Transfer Goal Independent Shower Transfer Goal Independent Days to Meet Goals 3 Frequency of Treatment Frequency Of Treatment Once a Day Treatment Plan OT Treatment Plan ADL Training,Functional Mobility,Patient/Family Education,Discharge Planning Other Treatment Recommendations and Next shower and review of LB Treatment Focus dressing with back precautions . Discharge Recommendations OT Discharge Recommendations Home with Assistance Home Equipment Needs shower chair, grab bars, handrail at entry steps.
--- NOTE | 2019-03-04 15:15 | PT.IPTN ---
Current Diagnoses Spinal stenosis, lumbar region with neurogenic claudication (03/03/19) Other intervertebral disc degeneration, lumbar region (03/03/19) Other specified postprocedural states (03/03/19) Surgery Performed Operation Date: 03/03/19 07:45 Actual Procedures p L5S1 revision laminectomy and instrumented fusion w/ bone graft(Not Applicable) - Dong Mcgregor MD Physical Therapy Treatment Note M2 PT-IP Current Condition Start: 03/03/19 18:10 Freq: NEEDED Status: Active Protocol: Document 03/03/19 16:40 JG (Rec: 03/03/19 18:37 JG [id number]) Physical Therapy Current Condition Current Condition Evaluation Date 03/03/19 Treatment Diagnosis L5-S1 TLIF, impaired mobility, limited activity tolerance Onset Date 03/03/19 Precautions Lumbar Precautions Log Roll,No Twisting,Limit Bending,Lifting Restriction of 10 lbs,Gait Belt above Incisional Area Weight Bearing Status Weight Bearing Status Full Weight Bearing M3 PT-IP Subjective Start: 03/03/19 18:10 Freq: NEEDED Status: Active Protocol: Document 03/04/19 15:15 AB (Rec: 03/04/19 15:51 AB [id number]) Subjective Physical Therapy Visit Type Type Treatment Note Visit Start Time 15:15 Visit Stop Time 15:28 Total Visit Minutes 13 Number of PALLET REPAIRER Visits 0 Physical Therapy Visit Comments Patient Comments I am sleepy Therapy Pain Assessment Pain When Pain Assessed At Rest Pain Present Pain Present Pain Reported Location Lower Back Intensity 2 Scale Used increases to 6/10 with mobility Pain Management Techniques Modification of Treatment,Re- positioning,Timing of Activity with Medications M4 PT-IP Mobility and Gait Start: 03/03/19 18:10 Freq: NEEDED Status: Active Protocol: Document 03/04/19 15:15 AB (Rec: 03/04/19 15:51 AB [id number]) PT-Bed Mobility Assessment Rolling Type of Rolling Log Rolling Level of Assist Standby Assistance Sit to Supine Sit to Supine Standby Assistance Scooting Scooting to Edge of Bed Standby Assistance PT-Transfer Assessment Sit to and From Stand Sit to and from Stand Standby Assistance Equipment Transfer Assistive Device Gait Belt,Front Wheeled Walker Orthotic/Prosthetic Devices or Brace: No Comments Mobility Comments pt completed log roll supine to sit SBA. informed nurse regarding surgery dressing. pt completed sit to stand CGA and ambulated in room using FWW 15 ft. pt stated that that is all she can do and has to go back to bed. stated that it is because she has pain. educated pt regarding post-op pain. pt understood but wants to go back to bed. completed sit to supine SBA. positioned pt in bed. Nurse came in to change pt's dressing. Gait Assessment Gait Gait Assistance Required: Contact Guard Assist Distance (Feet) 15 Able to Maintain Weight Bearing Status Yes During Gait Assistive Devices Assistive Device Gait Belt,Front Wheeled Walker Orthotic/Prosthetic Devices or Brace: No Gait Deviations General Gait Pattern Decreased Stride Length, Decreased Feet Clearance Factors Limiting Gait Function Factors Limiting Gait Function Decreased Activity Tolerance, Decreased Strength,Limited Range of Motion,Pain,Poor Balance M5 PT-IP Objective Assessments Start: 03/03/19 18:10 Freq: NEEDED Status: Active Protocol: Document 03/03/19 16:40 JG (Rec: 03/03/19 18:37 JG [id number]) Orientation Orientation/Cognition Level of Alertness Alert Orientation Name,Day of Week,Place, Situation Language Function Ability No Deficits Noted Safety Awareness Understands Safety Issues Memory Description No Deficits Noted Comments No noted cognitive or communication deficits. Gross Range of Motion Upper Extremity ROM Assessment Within Functional Limits Lower Extremity ROM Assessment Within Functional Limits Strength Upper Extremity Strength Assessment Within Functional Limits Lower Extremity Strength Assessment Bilaterally Impaired Hip 4-/5 Knee 4-/5 Ankle 4-/5 Sensation Assessment Sensation Gross Sensation Right LE Impaired,Left LE Impaired Light Touch Impaired Comments Sensation Comments Pt notes she has had decreased sensation on the bottom of both feet since previous back surgery. Muscle Tone Muscle Tone WNL Yes M6 PT-IP Treatment Start: 03/03/19 18:10 Freq: NEEDED Status: Active Protocol: Document 03/04/19 15:15 AB (Rec: 03/04/19 15:51 AB [id number]) Physical Therapy Treatment Education Education Provided Safety M7 PT-IP Assessment and Plan Start: 03/03/19 18:10 Freq: NEEDED Status: Active Protocol: Document 03/04/19 15:15 AB (Rec: 03/04/19 15:51 AB [id number]) PT Summary Assessment and Plan Potential Rehabilitation Potential Good Summary Impairments Pain,ROM,Strength,Balance,Bed Mobility,Transfers,Gait, Activity Tolerance Progress Towards Goals Slow Progress due to Activity Tolerance Assessment Summary pt continues to have decrease activity tolerance and unable to ambulate much. will have to assess progress for safe d/c plan. pt plans to go home and spouse to assist. pt stated that she got a FWW already which she borrowed from a friend. Goals Bed Mobility Goal Standby Assistance Transfer Goal Standby Assistance,Front Wheeled Walker Gait Goal Standby Assistance,Front Wheel Walker Gait Distance 100 Other Goals Ascend/descend 3 stairs CGA with SPC and/or HEEL PAINTER. Days to Meet Goals 5 Frequency of Treatment Frequency Of Treatment Twice a Day Treatment Plan Physical Therapy Treatment Plan Bed Mobility Training,Transfer Training,Gait Training, Therapeutic Exercise,Balance Retraining,Post Op Education, Discharge Planning,Hot or Cold Pack,Neuromuscular Re-ed Other Recommendations and Next Treatment gait training and stair Focus training as penelope caregiver training Recommendations To Nursing Amount of Assist Needed 1 Person Assist Discharge Recommendations PT Discharge Recommendations Home with Assistance
[2019-03-04 15:59] VITALS: BP 96/48; PULSE 91; RESP 17; TEMP 37.1; O2SAT 96
[2019-03-04 20:00] VITALS: BP 99/60; PULSE 92; RESP 18; TEMP 37.4; O2SAT 90
[2019-03-04] MEDS: ATORVASTATIN 10 MG TABLET PO (20:50)
[2019-03-04] MEDS: SENNOSIDES 8.6 MG TABLET 17.2 MG PO (20:51)
--- NOTE | 2019-03-04 21:58 | PC.NURSE ---
Breakthrough bleeding at end of evening shift: danielle blood in center of dressing the size of a quarter.
[2019-03-05] VITALS (9 sets, daily range): BP systolic 90–119; BP diastolic 55–69; PULSE 78–98; RESP 16–18; TEMP 36.7–37.5; O2SAT 91–98
--- NOTE | 2019-03-05 00:23 | PC.NURSE ---
Addendum entered by Clau Croft R.N. 03/05/19 06:35: Dressing became soaked and leaking again, changed at 0630 with gauze and tegaderm. Original Note: Shift note: At time of assessment patient's dressing was saturated and leaking from tegaderm. Removed dressing, patted dry around the incision and reapplied clean gauze to wound and covered with tegaderm. Patient tolerated well.
[2019-03-05] MEDS: HYDROCODONE/ACET 5/325 TABLET 2 TAB PO ×2 (05:16→13:24)
--- NOTE | 2019-03-05 06:20 | PC.NURSE ---
Shift note: Patient reports not getting adequate relief from current PO pain management, requesting IV pain management. Will discuss with day shift that patient might require different PO pain meds.
[2019-03-05] MEDS: HYDROMORPHONE 0.5 MG INJ IV ×2 (06:24→18:29)
[2019-03-05] MEDS: DOCUSATE 100 MG CAPSULE PO ×2 (08:19→21:52)
[2019-03-05] MEDS: ACETAMINOPHEN 325 MG TABLET 650 MG PO ×2 (08:20→13:24)
[2019-03-05] MEDS: PANTOPRAZOLE 20 MG TABLET PO (08:20)
[2019-03-05] MEDS: FOLIC ACID 1 MG TABLET PO (08:20)
[2019-03-05] MEDS: GABAPENTIN 300 MG CAPSULE PO ×3 (08:20→21:52)
[2019-03-05] MEDS: BACLOFEN 10 MG TABLET PO ×3 (08:20→21:52)
[2019-03-05] MEDS: ASPIRIN EC 81 MG TABLET PO (08:20)
[2019-03-05] MEDS: hydrOXYzine pamoate 25 MG CAPSULE PO (08:49)
[2019-03-05] MEDS: HYDROCODONE/ACET 5/325 TABLET 1 TAB PO (08:49)
--- NOTE | 2019-03-05 09:16 | PT.IPTN ---
Current Diagnoses Spinal stenosis, lumbar region with neurogenic claudication (03/03/19) Other intervertebral disc degeneration, lumbar region (03/03/19) Other specified postprocedural states (03/03/19) Surgery Performed Operation Date: 03/03/19 07:45 Actual Procedures p L5S1 revision laminectomy and instrumented fusion w/ bone graft(Not Applicable) - Dong Mcgregor MD Physical Therapy Treatment Note M2 PT-IP Current Condition Start: 03/03/19 18:10 Freq: NEEDED Status: Active Protocol: Document 03/03/19 16:40 JG (Rec: 03/03/19 18:37 JG [id number]) Physical Therapy Current Condition Current Condition Evaluation Date 03/03/19 Treatment Diagnosis L5-S1 TLIF, impaired mobility, limited activity tolerance Onset Date 03/03/19 Precautions Lumbar Precautions Log Roll,No Twisting,Limit Bending,Lifting Restriction of 10 lbs,Gait Belt above Incisional Area Weight Bearing Status Weight Bearing Status Full Weight Bearing M3 PT-IP Subjective Start: 03/03/19 18:10 Freq: NEEDED Status: Active Protocol: Document 03/05/19 09:16 CLB (Rec: 03/05/19 10:07 CLB [id number]) Subjective Physical Therapy Visit Type Type Treatment Note Visit Start Time 09:16 Visit Stop Time 09:35 Total Visit Minutes 19 Number of ASSISTANT FRONT OFFICE MANAGER Visits 1 Physical Therapy Visit Comments Patient Comments pt agreeable to do PT Therapy Pain Assessment Pain When Pain Assessed At Rest Pain Present Pain Present Pain Reported Location Lower Back Intensity 6 Scale Used Numeric (1 - 10) Pain Management Techniques Modification of Treatment,Re- positioning,Timing of Activity with Medications M4 PT-IP Mobility and Gait Start: 03/03/19 18:10 Freq: NEEDED Status: Active Protocol: Document 03/05/19 09:16 CLB (Rec: 03/05/19 10:07 CLB [id number]) PT-Bed Mobility Assessment Sit to Supine Sit to Supine Contact Guard Assistance PT-Transfer Assessment Sit to and From Stand Sit to and from Stand Standby Assistance Equipment Transfer Assistive Device Gait Belt,Front Wheeled Walker Orthotic/Prosthetic Devices or Brace: No Transfers Transfer Destination Bed,Bedside Commode Transfer Technique Stand Step Pivot Transfer Ability Level of Assist Contact Guard Assistance,1 Person Assistance Comments Mobility Comments Pt up on BS with RN upon arrival, pt stood from [facility] SBA . Pt required cues for reverse log roll and CGA at shoulder to assure pt did not roll onto back before feet were up on bed. Pt required cues to bend knees and push through heels to scoot up in bed. Gait Assessment Gait Gait Assistance Required: Contact Guard Assist Distance (Feet) 30 Able to Maintain Weight Bearing Status Yes During Gait Assistive Devices Assistive Device Gait Belt,Front Wheeled Walker Orthotic/Prosthetic Devices or Brace: No Gait Deviations General Gait Pattern Decreased Stride Length, Decreased Feet Clearance Factors Limiting Gait Function Factors Limiting Gait Function Decreased Activity Tolerance, Decreased Strength,Limited Range of Motion,Pain,Poor Balance Comments Gait Comments Pt ambulated ~15ft then refused further gait. Pt returned to bedside ~15ft for total of 30ft. Pt's FWW was too tall and youth size walker was adjusted to proper height and left in pt room. Stair Climbing Assessment Comments Stair Climbing Comments pt refused stair training. M5 PT-IP Objective Assessments Start: 03/03/19 18:10 Freq: NEEDED Status: Active Protocol: Document 03/03/19 16:40 JG (Rec: 03/03/19 18:37 JG [id number]) Orientation Orientation/Cognition Level of Alertness Alert Orientation Name,Day of Week,Place, Situation Language Function Ability No Deficits Noted Safety Awareness Understands Safety Issues Memory Description No Deficits Noted Comments No noted cognitive or communication deficits. Gross Range of Motion Upper Extremity ROM Assessment Within Functional Limits Lower Extremity ROM Assessment Within Functional Limits Strength Upper Extremity Strength Assessment Within Functional Limits Lower Extremity Strength Assessment Bilaterally Impaired Hip 4-/5 Knee 4-/5 Ankle 4-/5 Sensation Assessment Sensation Gross Sensation Right LE Impaired,Left LE Impaired Light Touch Impaired Comments Sensation Comments Pt notes she has had decreased sensation on the bottom of both feet since previous back surgery. Muscle Tone Muscle Tone WNL Yes M6 PT-IP Treatment Start: 03/03/19 18:10 Freq: NEEDED Status: Active Protocol: Document 03/05/19 09:16 CLB (Rec: 03/05/19 10:07 CLB [id number]) Physical Therapy Treatment Education Education Provided Precautions,Safety Other Treatments Other Treatment Performed SCD's placed on bilateral feet and turned on. Left pt with all needs within reach and bed alarm on. M7 PT-IP Assessment and Plan Start: 03/03/19 18:10 Freq: NEEDED Status: Active Protocol: Document 03/05/19 09:16 CLB (Rec: 03/05/19 10:07 CLB [id number]) PT Summary Assessment and Plan Summary Impairments Pain,ROM,Strength,Balance,Bed Mobility,Transfers,Gait, Activity Tolerance Progress Towards Goals Slow Progress due to Pain Assessment Summary Pt stated pain was 6/10 while resting and pain did not increase with gait or bed mobility. Pt was able to increase gait to ~30ft and perform reverse log roll with cues requiring CGA. Pt was able to perform scooting up in bed SBA with cues and was able to roll bilaterally in bed to remove bunched gown. Pt will require stair training before d/c home with assist of . Goals Bed Mobility Goal Standby Assistance Transfer Goal Standby Assistance,Front Wheeled Walker Gait Goal Standby Assistance,Front Wheel Walker Gait Distance 100 Other Goals Ascend/descend 3 stairs CGA with SPC and/or FUSION JUNCTURE GRINDER. Days to Meet Goals 5 Frequency of Treatment Frequency Of Treatment Twice a Day Treatment Plan Physical Therapy Treatment Plan Bed Mobility Training,Transfer Training,Gait Training, Therapeutic Exercise,Balance Retraining,Post Op Education, Discharge Planning,Hot or Cold Pack,Neuromuscular Re-ed Other Recommendations and Next Treatment gait training and stair Focus training as penelope caregiver training Recommendations To Nursing Amount of Assist Needed 1 Person Assist Discharge Recommendations PT Discharge Recommendations Home with Assistance
--- NOTE | 2019-03-05 09:21 | PM.PN.1 ---
Subjective Subjective Date Patient Seen: 03/05/19 Time Patient Seen: 09:21 Interval history: She is doing well. Legs feel fine. She has been standing and ambulating to bathroom. Has had some increased pain with increased activity. Requiring IV breakthrough (will wean down today). No nausea overnight. She describes the pain as an ache, 6/10. Her dressing was saturated 2x overnight. Changed last at shift change. C/D/I now Exam Vital Signs (past 8 hours): - 03/05/19 05:13 03/05/19 08:00 Temperature 99 F 99.5 F Pulse Rate 78 82 Respiratory Rate 18 16 Blood Pressure 90/55 L 104/66 Pulse Oximetry 93 94 Oxygen Delivery Method Room Air Oxygen Flow Rate 0 Narrative Exam Narrative: Dressing C/D/I 5/5 motor in BLE. Sensation grossly intact to bilateral LE Objective Labs Result Diagrams: 03/04/19 05:55 Assessment & Plan Assessment & Plan narrative: She is doing well. Mobilizing with physical therapy. Will wean down IV medications today. Continue to monitor dressing saturation. Anticipate DC home tomorrow Time Spent With Patient Time with patient: less than 15 minutes Quality VTE Deep Vein Thrombosis/Pulmonary Embolism Present on Admission: No
--- NOTE | 2019-03-05 13:12 | PC.NURSE ---
1300 Pt up to BRP w/sba, Pts back dressing is 75 saturated ser/sang drainage, changed the dressing w 2 4x4s and secured w/coversite.Pt penelope well, now up to chair for lunch.
[2019-03-05] MEDS: SODIUM CHLORIDE 0.9% FLUSH 10 ML IV ×2 (13:25→21:52)
--- NOTE | 2019-03-05 13:50 | PT-IP ANOTE ---
Pt refused stating she was too sleepy because she had been given pain meds. Assisted pt to reclining position in chair.Will check back with pt later this afternoon.
--- NOTE | 2019-03-05 14:30 | PT.IPTN ---
Current Diagnoses Spinal stenosis, lumbar region with neurogenic claudication (03/03/19) Other intervertebral disc degeneration, lumbar region (03/03/19) Other specified postprocedural states (03/03/19) Surgery Performed Operation Date: 03/03/19 07:45 Actual Procedures p L5S1 revision laminectomy and instrumented fusion w/ bone graft(Not Applicable) - Dong Mcgregor MD Physical Therapy Treatment Note M2 PT-IP Current Condition Start: 03/03/19 18:10 Freq: NEEDED Status: Active Protocol: Document 03/03/19 16:40 JG (Rec: 03/03/19 18:37 JG [id number]) Physical Therapy Current Condition Current Condition Evaluation Date 03/03/19 Treatment Diagnosis L5-S1 TLIF, impaired mobility, limited activity tolerance Onset Date 03/03/19 Precautions Lumbar Precautions Log Roll,No Twisting,Limit Bending,Lifting Restriction of 10 lbs,Gait Belt above Incisional Area Weight Bearing Status Weight Bearing Status Full Weight Bearing M3 PT-IP Subjective Start: 03/03/19 18:10 Freq: NEEDED Status: Active Protocol: Document 03/05/19 14:30 CLB (Rec: 03/05/19 15:21 CLB [email or web address]) Subjective Physical Therapy Visit Type Type Treatment Note Visit Start Time 14:30 Visit Stop Time 14:45 Total Visit Minutes 15 Number of VISUAL SPECIALIST Visits 2 Physical Therapy Visit Comments Patient Comments pt agreeable to do PT Therapy Pain Assessment Pain When Pain Assessed At Rest Pain Present Pain Present Pain Reported Location Lower Back Intensity 6 Scale Used Numeric (1 - 10) M4 PT-IP Mobility and Gait Start: 03/03/19 18:10 Freq: NEEDED Status: Active Protocol: Document 03/05/19 14:30 CLB (Rec: 03/05/19 15:21 CLB [id number]) PT-Transfer Assessment Sit to and From Stand Sit to and from Stand Standby Assistance Equipment Transfer Assistive Device Gait Belt,Front Wheeled Walker Orthotic/Prosthetic Devices or Brace: No Transfers Transfer Destination Chair Transfer Technique Stand Step Pivot Transfer Ability Level of Assist Contact Guard Assistance,1 Person Assistance Comments Mobility Comments Pt in chair asleep, woke with knock at door. Pt requiring SBA for sit<>stand using proper hand position for safety. Left pt in chair with all needs within reach. Gait Assessment Gait Gait Assistance Required: Contact Guard Assist Distance (Feet) 60 Able to Maintain Weight Bearing Status Yes During Gait Assistive Devices Assistive Device Gait Belt,Front Wheeled Walker Orthotic/Prosthetic Devices or Brace: No Gait Deviations General Gait Pattern Decreased Stride Length, Decreased Feet Clearance Factors Limiting Gait Function Factors Limiting Gait Function Decreased Activity Tolerance, Decreased Strength,Limited Range of Motion,Pain,Poor Balance Comments Gait Comments Pt increased ambulation to ~ 60ft, pt uses small step through gait with increased time due to slow eduardo. Pt required encouragement to ambulate and stated she didn't want to trial stairs. Pt reported not much pain but then said it was 6/10. M5 PT-IP Objective Assessments Start: 03/03/19 18:10 Freq: NEEDED Status: Active Protocol: Document 03/03/19 16:40 JG (Rec: 03/03/19 18:37 JG [id number]) Orientation Orientation/Cognition Level of Alertness Alert Orientation Name,Day of Week,Place, Situation Language Function Ability No Deficits Noted Safety Awareness Understands Safety Issues Memory Description No Deficits Noted Comments No noted cognitive or communication deficits. Gross Range of Motion Upper Extremity ROM Assessment Within Functional Limits Lower Extremity ROM Assessment Within Functional Limits Strength Upper Extremity Strength Assessment Within Functional Limits Lower Extremity Strength Assessment Bilaterally Impaired Hip 4-/5 Knee 4-/5 Ankle 4-/5 Sensation Assessment Sensation Gross Sensation Right LE Impaired,Left LE Impaired Light Touch Impaired Comments Sensation Comments Pt notes she has had decreased sensation on the bottom of both feet since previous back surgery. Muscle Tone Muscle Tone WNL Yes M6 PT-IP Treatment Start: 03/03/19 18:10 Freq: NEEDED Status: Active Protocol: Document 03/05/19 09:16 CLB (Rec: 03/05/19 10:07 CLB [id number]) Physical Therapy Treatment Education Education Provided Precautions,Safety Other Treatments Other Treatment Performed SCD's placed on bilateral feet and turned on. Left pt with all needs within reach and bed alarm on. M7 PT-IP Assessment and Plan Start: 03/03/19 18:10 Freq: NEEDED Status: Active Protocol: Document 03/05/19 14:30 CLB (Rec: 03/05/19 15:21 CLB [id number]) PT Summary Assessment and Plan Summary Impairments Pain,ROM,Strength,Balance,Bed Mobility,Transfers,Gait, Activity Tolerance Progress Towards Goals Slow Progress due to Activity Tolerance Assessment Summary Pt reported not much pain at rest and 6/10 pain with activity. Pt needs SBA for sit <>stand and CGA for gait with FWW. Pt able to increase ambulation to ~60ft. Goals Bed Mobility Goal Standby Assistance Transfer Goal Standby Assistance,Front Wheeled Walker Gait Goal Standby Assistance,Front Wheel Walker Gait Distance 100 Other Goals Ascend/descend 3 stairs CGA with SPC and/or MELTER CASTER. Days to Meet Goals 5 Frequency of Treatment Frequency Of Treatment Twice a Day Treatment Plan Physical Therapy Treatment Plan Bed Mobility Training,Transfer Training,Gait Training, Therapeutic Exercise,Balance Retraining,Post Op Education, Discharge Planning,Hot or Cold Pack,Neuromuscular Re-ed Other Recommendations and Next Treatment gait training and stair Focus training as penelope caregiver training Recommendations To Nursing Amount of Assist Needed 1 Person Assist Discharge Recommendations PT Discharge Recommendations Home with Assistance
--- NOTE | 2019-03-05 15:10 | CM.DPC ---
DCP: continued: Case discussed today with rounding ortho surgeon Dr. Lucero. He notes pt has had copious drainage from her spinal surgery incision and pain has been a limiting factor. She is expected to be here a couple more days. Met with her now as she was up using FWW with OT and going into bathroom for shower. She does confirm her plan for home with her spouse support and the therapy notes thus far indicate agreement with same. P: follow prn as POC unfolds. Orthopedic team if following the drainage closely.
--- NOTE | 2019-03-05 15:50 | OT.IP.TRT ---
Current Diagnoses Spinal stenosis, lumbar region with neurogenic claudication (03/03/19) Other intervertebral disc degeneration, lumbar region (03/03/19) Other specified postprocedural states (03/03/19) Surgery Performed Operation Date: 03/03/19 07:45 Actual Procedures p L5S1 revision laminectomy and instrumented fusion w/ bone graft(Not Applicable) - Dong Mcgregor MD Occupational Therapy Treatment Note M2 OT-IP Current Condition Start: 03/04/19 13:06 Freq: Status: Active Protocol: Document 03/04/19 13:06 CGR (Rec: 03/04/19 13:36 CGR [id number]) Occupational Therapy Current Condition Current Condition Evaluation Date 03/04/19 Treatment Diagnosis L5-S1 revision of yoandy, and fusion with bone graft. Diagnosis Onset Date 03/03/19 Post Operative Precautions Lumbar Precautions Log Roll,No Twisting,Limit Bending,Lifting Restriction of 10 lbs,Gait Belt above Incisional Area M3 OT- IP Subjective and Pain Start: 03/04/19 13:06 Freq: Status: Active Protocol: Document 03/05/19 16:55 CGR (Rec: 03/05/19 17:05 CGR [id number]) OT- Subjective Occupational Therapy Visit Type Type Progress Note Visit Start Time 14:55 Visit Stop Time 15:50 Total Visit Minutes 55 Notes Discussed with nursing earlier in day. Pt seen after pain medication administered. Occupational Therapy Visit Comments Patient Comments I am very drowsy. OT Pain Assessment Pain When Pain Assessed At Rest Pain Present Pain Present Pain Reported Location Lower Back Intensity 4 Scale Used Numeric (1 - 10) Management Techniques Timing of Activity with Medications M4 OT- IP ADL's Start: 03/04/19 13:06 Freq: Status: Active Protocol: Document 03/05/19 16:55 CGR (Rec: 03/05/19 17:05 CGR [id number]) OT [id number] Comments OT Self-Feeding Comments Not meal time. OT ADL-Grooming General Evaluation Grooming Ability Standby Assistance Areas Needing Assistance Retrieving/Set-up of Grooming Items Comments OT Grooming Comments brushed hair seated in chair. OT ADL-Oral Care Comments Oral Care Comments not performed OT ADL-Dressing General Eval Upper Body Dressing Ability Independent Lower Body Dressing Ability Standby Assistance Areas Needing Assistance Socks Assistive Devices Dressing Assistive Devices Busser,Sock Aid Comments OT Dressing Comments socks using sock aid and hospital gown with IND. OT ADL-Toileting General Evaluation Toileting Ability Standby Assistance Devices Toileting Assistive Devices Grab Bars OT ADL-Bathing Bathing Type Bathing Type Shower General Evaluation Bathing Ability Minimal Assistance Areas Needing Assistance Retrieving/Setting Up Items, Wash/Dry Back,Wash/Dry Lower Extremities Devices Bathing Equipment Hand Held Shower Sprayer, Shower Chair with Arms,Grab Bars M5 OT- IP IADL's Start: 03/04/19 13:06 Freq: Status: Active Protocol: Document 03/04/19 13:06 CGR (Rec: 03/04/19 13:36 CGR [id number]) OT-Instrumental Activities of Daily Living Deficits IADL Deficits Identified Deficits Home Safety Awareness Awareness of Need for Assistance at Home Good Awareness Ability to Problem Solve Emergency Able to Problem Solve Situations Medication Management Medication Management No Deficits Identified Money Management Money Management No Deficits Identified Meal Preparation Meal Preparation Caregiver Provides Assist Graphic Artist Graphic Artist Caregiver Provides Assist Driving Driving Comments Pt understands that she should not be driving till cleared by her doctor. M6 OT- IP Functional Cognition Start: 03/04/19 13:06 Freq: Status: Active Protocol: Document 03/04/19 13:06 CGR (Rec: 03/04/19 13:36 CGR [id number]) Cognitive Factors Limiting Selfcare Function Cognitive Ability Level of Alertness Alert Patient Orientation Name,Age,Birthday,Month,Date, Year,Day of Week,Place, Situation Attention Span Ability Capable of Focused Attention, Capable of Sustained Attention Ability to Follow Commands Able to Follow Multi-Step Commands Memory Description No Deficits Noted Safety Awareness No Deficits Noted Problem Solving Ability No deficits Noted Executive Function Ability No Deficits Noted Abstract Thinking Ability No Deficits Noted OT- Vision and Hearing OT- Hearing Assessment OT- Hearing Assessment WFL OT- Vision Assessment Visual Acuity WFL,Glasses All The Time Visual Attentiveness WFL Occular Pursuits WFL Visual Convergence WFL Visual Miller WFL Vision Assessment Comments Bifocals M7 OT- IP Mobility and Balance Start: 03/04/19 13:06 Freq: Status: Active Protocol: Document 03/05/19 16:55 CGR (Rec: 03/05/19 17:05 CGR [id number]) OT- Bed Mobility Assessment Sit to Supine Sit to Supine Assist Standby Assistance Scooting Scooting to Edge of Bed Standby Assistance OT-Transfer Assessment Sit to and From Stand Sit to and from Stand Standby Assistance Transfers Transfer Ability Standby Assistance Technique Transfer Destination Bed,Chair,Shower Stall,Toilet Transfer Technique Stand Step Pivot Devices Transfer Assistive Devices Gait Belt,Front Wheeled Walker Comments Mobility Comments Mobility around the room for shower. OT- Gait Assessment Gait Gait Assistance Required: Standby Assistance Assistive Devices Assistive Device Gait Belt,Front Wheeled Walker Orthotic/Prosthetic Devices or Brace: No OT- Balance Assessment Sitting Balance and Reactions Static Sitting Balance Ability Good Dynamic Sitting Balance Ability Fair M8 OT- IP Objective Assessments Start: 03/04/19 13:06 Freq: Status: Active Protocol: Document 03/04/19 13:06 CGR (Rec: 03/04/19 13:36 CGR [id number]) OT Gross Range of Motion Upper Extremity Range of Motion Assessment Within Functional Limits OT Strength Upper Extremity Strength Assessment Within Functional Limits OT- Coordination Assessment Upper Extremity Finger to Nose Test Within Functional Limits Finger Tapping Test Within Functional Limits OT-Muscle Tone Assessment Muscle Tone WNL Yes OT Sensation Assessment Edema Edema Absent M9 OT- IP Assessment and Plan Start: 03/04/19 13:06 Freq: Status: Active Protocol: Document 03/05/19 16:55 CGR (Rec: 03/05/19 17:05 CGR [id number]) OT Summary Assessment and Plan Potential Rehabilitation Potential Excellent Analytic Complexity at Evaluation Low Summary OT Impairments Pain,Balance,Functional Mobility,Grooming,Dressing, Toileting,Bathing,Toilet Transfers,Shower Transfers Progress Towards Goals Progressing Toward Goals Assessment Summary Pt is progressing well with therapy but appeared lethargic today. Pt having difficulty staying awake towards the end of the session as she was getting dressed. Pt did well with showering on this date and will continue to benefit from OT services. Recommend d/ c to home with family support. Goals Dressing Goal Independent,Busser,Sock Aid Toileting Goal Independent Bathing Goal Independent Toilet Transfer Goal Independent Shower Transfer Goal Independent Days to Meet Goals 2 Frequency of Treatment Frequency Of Treatment Once a Day Treatment Plan OT Treatment Plan ADL Training,Functional Mobility,Patient/Family Education,Discharge Planning Other Treatment Recommendations and Next review of LB dressing with Treatment Focus back precautions. Discharge Recommendations OT Discharge Recommendations Home with Assistance Home Equipment Needs shower chair, grab bars, handrail at entry steps.
[2019-03-05] MEDS: SENNOSIDES 8.6 MG TABLET 17.2 MG PO (21:52)
[2019-03-05] MEDS: ATORVASTATIN 10 MG TABLET PO (21:52)
[2019-03-06] MEDS: SODIUM CHLORIDE 0.9% FLUSH 10 ML IV ×2 (00:55→08:47)
[2019-03-06] MEDS: HYDROCODONE/ACET 5/325 TABLET 2 TAB PO ×3 (01:00→09:44)
[2019-03-06 05:24] VITALS: BP 106/58; PULSE 79; RESP 16; TEMP 36.7; O2SAT 95
--- NOTE | 2019-03-06 07:40 | PC.NURSE ---
Pt dressing increased in saturation overnight, necessitating dressing change. Dressing changed using 2 4x4's and tegaderm. Bilateral incisions well approximated, no redness or s/s infection. Pt rates pain 6-7 overnight, PO pain medication in addition to tylenol given per order. Pt able to ambu to BR with SBA as was tolerating pain. Pt provided discharge education regarding constipation side effect from pain medications.
[2019-03-06] MEDS: ASPIRIN EC 81 MG TABLET PO (08:45)
[2019-03-06] MEDS: DOCUSATE 100 MG CAPSULE PO (08:46)
[2019-03-06] MEDS: GABAPENTIN 300 MG CAPSULE PO ×2 (08:46→14:21)
[2019-03-06] MEDS: PANTOPRAZOLE 20 MG TABLET PO (08:46)
[2019-03-06] MEDS: FOLIC ACID 1 MG TABLET PO (08:46)
[2019-03-06] MEDS: BACLOFEN 10 MG TABLET PO ×2 (08:46→14:21)
[2019-03-06 09:00] VITALS: BP 123/67; PULSE 86; RESP 17; TEMP 36.6; O2SAT 94
--- NOTE | 2019-03-06 09:02 | PT.IPTN ---
Current Diagnoses Spinal stenosis, lumbar region with neurogenic claudication (03/03/19) Other intervertebral disc degeneration, lumbar region (03/03/19) Other specified postprocedural states (03/03/19) Surgery Performed Operation Date: 03/03/19 07:45 Actual Procedures p L5S1 revision laminectomy and instrumented fusion w/ bone graft(Not Applicable) - Dong Mcgregor MD Physical Therapy Treatment Note M2 PT-IP Current Condition Start: 03/03/19 18:10 Freq: NEEDED Status: Active Protocol: Document 03/03/19 16:40 JG (Rec: 03/03/19 18:37 JG [id number]) Physical Therapy Current Condition Current Condition Evaluation Date 03/03/19 Treatment Diagnosis L5-S1 TLIF, impaired mobility, limited activity tolerance Onset Date 03/03/19 Precautions Lumbar Precautions Log Roll,No Twisting,Limit Bending,Lifting Restriction of 10 lbs,Gait Belt above Incisional Area Weight Bearing Status Weight Bearing Status Full Weight Bearing M3 PT-IP Subjective Start: 03/03/19 18:10 Freq: NEEDED Status: Active Protocol: Document 03/06/19 09:03 CLB (Rec: 03/06/19 10:00 CLB [id number]) Subjective Physical Therapy Visit Type Type Treatment Note Visit Start Time 09:02 Visit Stop Time 09:40 Total Visit Minutes 38 Number of TUBE ROOM SUPERVISOR Visits 3 Physical Therapy Visit Comments Patient Comments pt agreeable to do PT Therapy Pain Assessment Pain When Pain Assessed At Rest Pain Present Pain Present Pain Reported Location Lower Back Intensity 6 Scale Used Numeric (1 - 10) Pain Management Techniques Modification of Treatment,Re- positioning,Timing of Activity with Medications M4 PT-IP Mobility and Gait Start: 03/03/19 18:10 Freq: NEEDED Status: Active Protocol: Document 03/06/19 09:03 CLB (Rec: 03/06/19 10:00 CLB [id number]) PT-Bed Mobility Assessment Rolling Type of Rolling Roll to Right Level of Assist Standby Assistance Supine to Sit Supine to Sit Standby Assistance Sit to Supine Sit to Supine Standby Assistance Scooting Scooting to Edge of Bed Standby Assistance PT-Transfer Assessment Sit to and From Stand Sit to and from Stand Standby Assistance Equipment Transfer Assistive Device Gait Belt,Front Wheeled Walker Orthotic/Prosthetic Devices or Brace: No Transfers Transfer Destination Chair,Toilet,Wheelchair Transfer Technique Stand Step Pivot Transfer Ability Level of Assist Standby Assistance,Use of Upper Extremities Comments Mobility Comments Pt is SBA for log roll/reverse log roll, supine<>sit, sit<> stand. Pt is able to scoot to EOB SBA. Left pt in bed with all needs within reach and SCD 's on bilateral feet. Gait Assessment Gait Gait Assistance Required: Standby Assistance Distance (Feet) 100 Able to Maintain Weight Bearing Status Yes During Gait Assistive Devices Assistive Device Gait Belt,Front Wheeled Walker Orthotic/Prosthetic Devices or Brace: No Gait Deviations General Gait Pattern Decreased Stride Length, Decreased Feet Clearance Factors Limiting Gait Function Factors Limiting Gait Function Decreased Activity Tolerance, Decreased Strength,Limited Range of Motion,Pain Comments Gait Comments Pt able to increase gait to ~ 100ft, pt walked to peck then needed to use BR, Pt then returned to room to use BR, pt then ambulated into peck to WC. After stair training pt ambuated another 30ft with overall distance ~100ft total for this tx session. Pt is able to ambulate SBA with good balance and slow step through gait pattern. Stair Climbing Assessment Evaluation Level of Assist On Stairs Minimal Assistance,1 Person Assistance Devices Stair Climbing Assistive Devices None Technique/Endurance Stair Climbing Direction Ascend and Descend Stair Climbing Technique Step to Step Number of Steps Climbed 3 Stair Climbing Set # Repetitions (reps) 1 Comments Stair Climbing Comments Pt required Min A due to not having hand rails at home. Pt required Min A with OTHER SPATIAL SCIENTIST up stairs and hands on therapists shoulders with therapist down step from pt. Pt required few cues and was able to manuever steps with Min A. M5 PT-IP Objective Assessments Start: 03/03/19 18:10 Freq: NEEDED Status: Active Protocol: Document 03/03/19 16:40 JG (Rec: 03/03/19 18:37 JG [id number]) Orientation Orientation/Cognition Level of Alertness Alert Orientation Name,Day of Week,Place, Situation Language Function Ability No Deficits Noted Safety Awareness Understands Safety Issues Memory Description No Deficits Noted Comments No noted cognitive or communication deficits. Gross Range of Motion Upper Extremity ROM Assessment Within Functional Limits Lower Extremity ROM Assessment Within Functional Limits Strength Upper Extremity Strength Assessment Within Functional Limits Lower Extremity Strength Assessment Bilaterally Impaired Hip 4-/5 Knee 4-/5 Ankle 4-/5 Sensation Assessment Sensation Gross Sensation Right LE Impaired,Left LE Impaired Light Touch Impaired Comments Sensation Comments Pt notes she has had decreased sensation on the bottom of both feet since previous back surgery. Muscle Tone Muscle Tone WNL Yes M6 PT-IP Treatment Start: 03/03/19 18:10 Freq: NEEDED Status: Active Protocol: Document 03/06/19 09:03 CLB (Rec: 03/06/19 10:00 CLB [id number]) Physical Therapy Treatment Education Education Provided Precautions,Safety Other Treatments Other Treatment Performed SCD's placed on bilateral feet and turned on. Left pt with all needs within reach and bed alarm on. M7 PT-IP Assessment and Plan Start: 03/03/19 18:10 Freq: NEEDED Status: Active Protocol: Document 03/06/19 09:03 CLB (Rec: 03/06/19 10:00 CLB [id number]) PT Summary Assessment and Plan Summary Impairments Pain,ROM,Strength,Balance,Bed Mobility,Transfers,Gait, Activity Tolerance Progress Towards Goals Slow Progress due to Activity Tolerance Assessment Summary Pt is SBA for all mobility with Min A on stairs due to having no rails at home. Pt will call and set up CG training and stair training for this afternoon. Goals Bed Mobility Goal Standby Assistance Transfer Goal Standby Assistance,Front Wheeled Walker Gait Goal Standby Assistance,Front Wheel Walker Gait Distance 100 Other Goals Ascend/descend 3 stairs CGA with SPC and/or OTHER SPATIAL SCIENTIST. Days to Meet Goals 5 Frequency of Treatment Frequency Of Treatment Twice a Day Treatment Plan Physical Therapy Treatment Plan Bed Mobility Training,Transfer Training,Gait Training, Therapeutic Exercise,Balance Retraining,Post Op Education, Discharge Planning,Hot or Cold Pack,Neuromuscular Re-ed Other Recommendations and Next Treatment caregiver training Focus Recommendations To Nursing Amount of Assist Needed 1 Person Assist Discharge Recommendations PT Discharge Recommendations Home with Assistance
--- NOTE | 2019-03-06 11:02 | CM.DPC ---
Addendum entered by Nirmala Casanova R.N. 03/06/19 15:57: Was able to confirm patient going to [facility]. Patient was ready to appeal her discharge, for she did not feel comfortable going home. She had been on the phone with BRYAN, and this lead case manager just found out that [facility] had gotten the insurance authorization. Confirmed pick out hand time for after 1500. Updated patient, who was pleased that they could take her, and was ok with the discharge. Nurse, Brittani, aware. Riley Christina, [facility] signed med sheets. Faxed PASSR, med sheets, and discharge summary. Was able to provide ICD 10 codes to Viv so she could let insurance know. Patient is discharging to [facility] today. Addendum entered by Nirmala Casanova R.N. 03/06/19 14:03: [facility] can accept, but can't get insurance authorization today. Stated, could take a couple of days. [facility] is working on authorization, and have had several conversations with Viv in admissions. She called back about 3 times asking about primary MD, diagnosis. Gave her information needed. Spoke to patient and let her know that she may not be able to get the authorization. Let her know that home health, [facility] can see her tomorrow. Patient has continued to complain about pain, and wants pain medications to take if she has to go home. Have updated nurse, Brittani. Patient has also complained that her grand children are at home with he daughter, and they are noisy. O.T. gave her some ear plugs that may be beneficial. Let her know that discharge plan is today, either [facility], or home health[facility]. Addendum entered by Nirmala Casanova R.N. 03/06/19 13:23: [facility] stated that [facility] could accept, spoke to Viv in admissions, but she did not yet get authorization. Had already set up time for 1500. She is calling her insurance for authorization, as is [facility] as well. Addendum entered by Nirmala Casanova R.N. 03/06/19 11:33: Sent referral over to [facility] as well. Spoke to Amparo in admissions. Patient is out of network with them, for she is [facility] which needs prior auth. [facility] is contracted. Spoke to Sekou who is reviewing, and it is unclear how long the authorization will take. At times, they can do same day contract. [facility] is also reviewing. Updated Riley Christina as well. Original Note: DCP Cont: Riley Christina, ortho PAC stated that patient is reluctant to go home, she is worried about her dressing, and pain. She had BM today. Let him know that this lead case manager would talk to patient about her concerns. Spoke to patient. She mentioned, I'm worried about going home, I don't think that my can change my dressing, and I have toddler grand kids at home. Mentioned home health, and she is still concerned. Asked her if she would be interested in intermediate, and she mentioned, she thinks that it would be a good idea. Asked her if she had a preference of facilities, and she stated, one that's close to me. Patient resides in [place]. Went ahead and started with [facility] in [place]. Spoke to Sekou in admissions, and sent her referral. Stated that she would review. Sent referral over to [facility] as well. P: Will check back with facilites. Nirmala Casanova RN/Timers Inspector
--- NOTE | 2019-03-06 12:07 | OT.IP.TRT ---
Current Diagnoses Spinal stenosis, lumbar region with neurogenic claudication (03/03/19) Other intervertebral disc degeneration, lumbar region (03/03/19) Other specified postprocedural states (03/03/19) Surgery Performed Operation Date: 03/03/19 07:45 Actual Procedures p L5S1 revision laminectomy and instrumented fusion w/ bone graft(Not Applicable) - Dong Mcgregor MD Occupational Therapy Treatment Note M2 OT-IP Current Condition Start: 03/04/19 13:06 Freq: Status: Active Protocol: Document 03/04/19 13:06 CGR (Rec: 03/04/19 13:36 CGR [id number]) Occupational Therapy Current Condition Current Condition Evaluation Date 03/04/19 Treatment Diagnosis L5-S1 revision of yoandy, and fusion with bone graft. Diagnosis Onset Date 03/03/19 Post Operative Precautions Lumbar Precautions Log Roll,No Twisting,Limit Bending,Lifting Restriction of 10 lbs,Gait Belt above Incisional Area M3 OT- IP Subjective and Pain Start: 03/04/19 13:06 Freq: Status: Active Protocol: Document 03/06/19 12:12 [facility] (Rec: 03/06/19 12:24 [facility] [id number]) OT- Subjective Occupational Therapy Visit Type Type Treatment Note Visit Start Time 10:05 Visit Stop Time 10:12 Treatment time 29 minutes Notes Pt also seen from [id number] for OT treatment to help figure out toileting needs. Occupational Therapy Visit Comments Patient Comments Pt very anxious about going home due to pain and family issues at home. Patient/Caregiver Goals Pt wants to be able to stay in the hospital until pain managed better or go to skilled rehab mainly due to family issues at home- pt states has autistic grandchild that screams all the time. Suggested pt try to wear earplugs at night, earplugs issued to pt. OT Pain Assessment Pain When Pain Assessed At Rest Pain Present Pain Present Pain Reported Location Lower Back Intensity 8 Scale Used Numeric (1 - 10) M4 OT- IP ADL's Start: 03/04/19 13:06 Freq: Status: Active Protocol: Document 03/06/19 12:12 [facility] (Rec: 03/06/19 12:24 [facility] [id number]) OT [id number] Comments OT Self-Feeding Comments Not meal time. OT ADL-Toileting General Evaluation Toileting Ability Moderate Assistance Comments OT Toileting Comments Pt not able to reach her pericare needs and will need assist or use of toilet aid , went over information with pt. Otherwise, pt's will have to assist pt. M5 OT- IP IADL's Start: 03/04/19 13:06 Freq: Status: Active Protocol: Document 03/04/19 13:06 CGR (Rec: 03/04/19 13:36 CGR [id number]) OT-Instrumental Activities of Daily Living Deficits IADL Deficits Identified Deficits Home Safety Awareness Awareness of Need for Assistance at Home Good Awareness Ability to Problem Solve Emergency Able to Problem Solve Situations Medication Management Medication Management No Deficits Identified Money Management Money Management No Deficits Identified Meal Preparation Meal Preparation Caregiver Provides Assist Applied Biology Professor Applied Biology Professor Caregiver Provides Assist Driving Driving Comments Pt understands that she should not be driving till cleared by her doctor. M6 OT- IP Functional Cognition Start: 03/04/19 13:06 Freq: Status: Active Protocol: Document 03/04/19 13:06 CGR (Rec: 03/04/19 13:36 CGR [id number]) Cognitive Factors Limiting Selfcare Function Cognitive Ability Level of Alertness Alert Patient Orientation Name,Age,Birthday,Month,Date, Year,Day of Week,Place, Situation Attention Span Ability Capable of Focused Attention, Capable of Sustained Attention Ability to Follow Commands Able to Follow Multi-Step Commands Memory Description No Deficits Noted Safety Awareness No Deficits Noted Problem Solving Ability No deficits Noted Executive Function Ability No Deficits Noted Abstract Thinking Ability No Deficits Noted OT- Vision and Hearing OT- Hearing Assessment OT- Hearing Assessment WFL OT- Vision Assessment Visual Acuity WFL,Glasses All The Time Visual Attentiveness WFL Occular Pursuits WFL Visual Convergence WFL Visual Miller WFL Vision Assessment Comments Bifocals M7 OT- IP Mobility and Balance Start: 03/04/19 13:06 Freq: Status: Active Protocol: Document 03/06/19 12:12 [facility] (Rec: 03/06/19 12:24 [facility] [id number]) OT-Transfer Assessment Sit to and From Stand Sit to and from Stand Standby Assistance,Contact Guard Assistance Transfers Transfer Ability Standby Assistance Technique Transfer Destination Chair,Toilet Devices Transfer Assistive Devices Gait Belt,Front Wheeled Walker OT- Gait Assessment Gait Gait Assistance Required: Standby Assistance Assistive Devices Assistive Device Gait Belt,Front Wheeled Walker Comments Gait Ability Comments Pt needing CGA to come to stand form lower surfaces. Pt has raised toilet at home to use. At this timept does not have grab bars at home to help come to stand and educated pt how to help to stand by pushing up through her arms on the FWW and legs to come to standing. Intially, pt may need to just be assisted by her . M8 OT- IP Objective Assessments Start: 03/04/19 13:06 Freq: Status: Active Protocol: Document 03/04/19 13:06 CGR (Rec: 03/04/19 13:36 CGR [id number]) OT Gross Range of Motion Upper Extremity Range of Motion Assessment Within Functional Limits OT Strength Upper Extremity Strength Assessment Within Functional Limits OT- Coordination Assessment Upper Extremity Finger to Nose Test Within Functional Limits Finger Tapping Test Within Functional Limits OT-Muscle Tone Assessment Muscle Tone WNL Yes OT Sensation Assessment Edema Edema Absent M9 OT- IP Assessment and Plan Start: 03/04/19 13:06 Freq: Status: Active Protocol: Document 03/06/19 12:12 [facility] (Rec: 03/06/19 12:24 [facility] [id number]) OT Summary Assessment and Plan Potential Rehabilitation Potential Good Analytic Complexity at Evaluation Low Summary OT Impairments Pain,Balance,Functional Mobility,Grooming,Dressing, Toileting,Bathing,Toilet Transfers,Shower Transfers Progress Towards Goals Progressing Toward Goals Assessment Summary Pt a bit anxious of going home due to having had frequent dressing changes and not sure if can manage, still having 8/10 pain , and family issues at home. Pt would benefit from home health OT,PT and nursing to work on safety and independence in her home setting. Goals Days to Meet Goals 1 Frequency of Treatment Frequency Of Treatment Once a Day Treatment Plan OT Treatment Plan ADL Training,Functional Mobility,Patient/Family Education,Discharge Planning Discharge Recommendations OT Discharge Recommendations Home with Assistance,Home Health Home Equipment Needs shower chair, grab bars, handrail at entry steps.
--- NOTE | 2019-03-06 12:47 | PC.NURSE ---
Addendum entered by Brittani Alfaro R.N. 03/06/19 15:39: TSF - transport staff arrived, kathyila folder w/info and scripts provided, noted some serosang drainage on recent dsg changed, removed the coversite and replaced with a telfa over incisions, 4x4's and then paper tape to secure, all belongings gathered, including cell phone, extra battery, ear phones, shirt presser, glasses, watch, clothing, tsf to and transport person then assisted to [place]. Addendum entered by Brittani Alfaro R.N. 03/06/19 15:21: TSF - report provided to Debo Mackay at [facility]. Addendum entered by Brittani Alfaro R.N. 03/06/19 14:54: [employer] - the telfa dsg removed, old serous fluid on 4x4, some surrounding pink w/o breakdown at old margin sites, parallel sutures incisions w/o redness or drainage, replaced with coversite. Addendum entered by Brittani Alfaro R.N. 03/06/19 14:46: TRSF - per Melody in , the tsf to [facility] has been approved and she informed pt, the appeal is cancelled, the saline lock dc'd. Addendum entered by Brittani Alfaro R.N. 03/06/19 14:24: PAIN/TSF - per melody in , the [facility] has not yet been authorized, per pt her pain is not controlled, spoke to Riley GOULD and a new order for 5mg oxycodone was ordered and given to pt with 650mg po tylenol and her gabapentin and baclofen, per SS, pt is now appealing her DC/Tsf. Original Note: AM NOTE - pt is alert, at bedside shift report, states back discomfort 6 on scale 0/10, given norco x 2 tabs earlier during night, back barrier dsg cdi, wearing footie scd, does have hx numbness bottom l foot prior to surgery, later am pt taken to stair practice by phys therapy, on return, pt tearful and states pain 8 on scale 0/10, given norco 5/325mg tab, per pt, has hx fibromyalgia, discussed pain mgt with Riley GOULD, no new orders at this time.
[2019-03-06 13:34] VITALS: BP 133/65; PULSE 84; RESP 16; TEMP 36.7; O2SAT 95
--- NOTE | 2019-03-06 13:51 | P.DS_ITS ---
History of Present Illness History of Present Illness Date Patient Seen: 03/06/19 Time Patient Seen: 11:51 Chief complaint: Translaminar Interbody Fusion/Laminotomy/$440 copa Narrative: Patient's pain today is 6-8/10. Worse with physical therapy. Denies fever chills. No nausea /vomiting. Patient will have very limited assistance at home because her will be taking care of their children. Patient doesn't yet feel strong enough to be a home without assistance. Discharge Providers Provider Date of admission: 03/03/19 05:50 Discharge Date: 03/06/19 Consults: 03/03/19 12:08 Consult to Occupational Therapy Evaluate & Treat Comment: Physician Instructions: Evaluate and treat Consult to Physical Therapy Evaluate & Treat Comment: Physician Instructions: Evaluate and Treat 03/06/19 10:18 Consult to Home Health Routine Comment: Reason For Exam: Home FWW, youth Discharge provider: Riley Christina PA-C Summary Hospital Course Discharge Diagnosis: Lumbar stenosis with radiculopathy, history of lumbar la minectomy Hospital Course: [address] [address] Operative Note Patient: Chanda Thorne LMR#: [id number] : 3Acct:[id number] Age/Sex: 68 / F Date of Service: 03/03/19 Provider: Dong Mcgregor MD Operative Date/Time/Diagnoses Date of procedure: 03/03/19 Time of procedure: 10:21 Pre-op diagnosis: Lumbar stenosis with radiculopathy History of lumbar laminectomy Post-op diagnosis: same Procedure & Clinicians Procedure: Revision laminectomy on the right at L5-S1 L5-S1 TLIF (posterior/posterior interbody fusion) with cage L5-S1 screws Iliac crest bone graft aspirate Use of microscope Same procedure as scheduled: Yes Indications: [age] year old female with intractable pain from stenosis. They had failed conservative management and requested operative intervention. Risks and benefits of surgery were discussed and appropriate consents were obtained. Surgeon: Dong Mcgregor Liquid [employer] Plant Operator: Daren Parham Anesthesia Type: General Operative Notes Findings: None Closure Type: primary Specimen(s): none sent Prosthetic devices, grafts, tissues, transplants, or devices: NuVasive MAS Reline screws Globus Rise cage Estimated Blood Loss (mL): 20 Patient admitted to the hospital for the above-mentioned procedure. Patient taken to the operating room after consent signed. Patient underwent the above- mentioned procedure. Patient's back in her room recovering well as in stable condition. Patient has been slow to mobilize and work with physical therapy on lower extremity strengthening due to pain control issues. Patient still needing assistance per physical therapy. Patient will have very limited to no assistance as her is taking care of their children. Recommend residential facility for further rehab lower extremity strengthening. Exam Vital Signs (past 8 hours): - 03/06/19 09:00 03/06/19 13:34 Temperature 97.8 F 98.1 F Pulse Rate 86 84 Respiratory Rate 17 16 Blood Pressure 123/67 133/65 Pulse Oximetry 94 95 Oxygen Delivery Method Room Air Oxygen Flow Rate 0 Narrative Exam Narrative: 68-year-old female resting comfortably in bed in no apparent distress. Lumbar dressing is moist. No active drainage noted. Neurovascular status is intact to the bilateral lower extremities. Objective Labs Result Diagrams: 03/04/19 05:55 Discharge Plan Discharge Plan Patient Disposition: SNF Under care of provider: Dr. Mcgregor Discharge comment: f/u 1.5 wks Discharge orders & Medications Prescriptions: New docusate sodium [DOK] 100 mg Capsule 100 mg PO BID PRN (Reason: constipation) Qty: 30 RF: 0 hydrocodone-acetaminophen 5-325 mg Tablet See Rx Instructions .ROUTE .COMPLEX PRN (Reason: Pain, Moderate (4-6)) Qty: 30 RF: 0 hydroxyzine pamoate 25 mg Capsule 25 mg PO Q4HR PRN (Reason: spasms) Qty: 20 RF: 0 Continued atorvastatin [Lipitor] 10 mg Tablet 10 mg PO BEDTIME RF: 0 potassium chloride 10 mEq Tablet Extended Release 10 meq PO BID PRN (Reason: w/Furosemide) RF: 0 aspirin 81 mg Tablet,Delayed Release (Dr/Ec) 81 mg PO DAILY RF: 0 tramadol [Ultram] 50 mg Tablet 25 mg PO Q6H PRN (Reason: Pain) RF: 0 pantoprazole 20 mg Tablet,Delayed Release (Dr/Ec) 20 mg PO DAILY RF: 0 methotrexate sodium 2.5 mg Tablet 15 mg PO SEEINSTR RF: 0 baclofen 10 mg Tablet 10 mg PO TID RF: 0 nitroglycerin 0.4 mg Tablet, Sublingual 0.4 mg SUBLINGUAL Q5-15M PRN (Reason: Chest Pain) RF: 0 gabapentin 300 mg Capsule 300 mg PO TID RF: 0 folic acid 1 mg Tablet 1 mg PO DAILY RF: 0 furosemide 20 mg Tablet 20 mg PO DAILY PRN (Reason: water retention) RF: 0 fluticasone propionate [Flonase Allergy Relief] 50 mcg/actuation [place],Suspension 1 spray INTRANASAL DAILY RF: 0 Discontinued etodolac 400 mg Tablet 400 mg PO BID RF: 0 Follow up/Referrals: Dong Mcgregor MD [Physician] - Discharge Health Status Multidrug resistant organism: No MDRO Diet/Activity/Treatments Diet: Diet as Tolerated Activity: limited BLT 10 lbs Skin/Wound/Dressing Care Report to your healthcare provider any signs of infection, such as:: chills, fever, night sweats, increased pain, unusual drainage and unusual redness Dressing: may change dressing and shower POD#5 Special Rehabilitation Services Reason for rehabilitation: Post-operative therapy Rehab type: Physical therapy and Occupational therapy Restrictions to mobility: limit bending, lifting, twisting Visit Report/Discharge Packet Instructions: DI for Transforaminal Lumbar Interbody Fusion Stand Alone Forms: Surgery Discharge Quality VTE Deep Vein Thrombosis/Pulmonary Embolism Present on Admission: No
[2019-03-06] MEDS: ACETAMINOPHEN 325 MG TABLET 650 MG PO (14:21)
[2019-03-06] MEDS: OXYCODONE IR 5 MG TABLET PO (14:22)
--- NOTE | 2019-03-06 15:23 | CM.DPC ---
DCP Cont: Faxed MAR, D/C order, discharge summary, PASRR and H&P to Debo Mackay at [facility], fax # [phone]. Fax confirmation scanned in. Ashly Contreras, [facility] HospitalOffice Messenger
== END 2019-03-06 15:42 | DRG 455 ==
PROVIDERS: Admitting Provider Orthopaedic Surgery; Visit Provider Orthopaedic Surgery
PROC: 0SG30AJ Fusion of Lumbosacral Joint with Interbody Fusion Device, Posterior Approach, Anterior Column, Open Approach (ICD-10-PCS; principal; 2019-03-03 07:45)
DX: M48.062 Spinal stenosis, lumbar region with neurogenic claudication (principal); M96.1 Postlaminectomy syndrome, not elsewhere classified; M54.17 Radiculopathy, lumbosacral region; M51.36 Other intervertebral disc degeneration, lumbar region; E07.9 Disorder of thyroid, unspecified; L40.9 Psoriasis, unspecified; I25.10 Atherosclerotic heart disease of native coronary artery without angina pectoris; K21.9 Gastro-esophageal reflux disease without esophagitis; Z87.891 Personal history of nicotine dependence
CPT/HCPCS: 36415; 72100; 76000; 85014; 85018; 97116; 97162; 97165; 97530; 97535; C1776; C9290; J0330; J0690; J1100; J1170; J2405; J2704; J3010